=== PATIENT | female | born 1955 | race Two or more races ===

== ENCOUNTER 2017-01-13 11:00 | Inpatient (IN) | payer MEDICARE, OTHER ==
[~2017-01-13] VITALS: Ht 147.3 cm; Wt 73.1 kg
[~2017-01-13 11:00] MED LIST: HYDR-971 PO; INSU100V13 SQ; LISI1TAB7 PO; NAPR550T PO
[2017-01-13 11:49] LABS: BASO % 0 % (0-3); EOS % 1 % (0-3); HEMATOCRIT 46.1 % (36.0-47.0); HEMOGLOBIN 15.5 g/dL (12.0-15.5); LYMPH # 2.3 x10^3/uL (1.0-4.8); LYMPH % 36 % (24-48); MEAN CORPUSCULAR HEMOGLOBIN 30 pg (25-35); MEAN CORPUSCULAR HGB CONC 34 g/dL (31-37); MEAN CORPUSCULAR VOLUME 90 fL (79-100); MONO % 7 % (0-9); NEUT % 55 % (31-73); PLATELET COUNT 246 x10^3/uL (140-400); RED BLOOD COUNT 5.13 x10^6/uL (3.50-5.40); WHITE BLOOD COUNT 6.3 x10^3/uL (4.0-11.0)
[2017-01-13] MEDS ORDERED: ONDANSETRON PF 4 MG/2 ML VIAL. IV ONE (12:00)
[2017-01-13] MEDS ORDERED: IV NORMAL SALINE 1000ML BAG 1,000 ML IV ONE (12:00)
[2017-01-13 12:02] LABS: CALCIUM 9.3 mg/dL (8.5-10.1); CREATININE 0.6 mg/dL (0.6-1.0); GFR 101.3
[2017-01-13 12:08] LABS: ALBUMIN 4.1 g/dL (3.4-5.0); ALBUMIN/GLOBULIN RATIO 1.1 (1.0-1.7); TOTAL BILIRUBIN 0.7 mg/dL (0.2-1.0)
[2017-01-13 12:37] LABS: BILIRUBIN,URINE NEGATIVE (NEG); GLUCOSE,URINE >=1000 mg/dL (NEG); NITRITE,URINE NEGATIVE (NEG); PROTEIN,URINE NEGATIVE (NEG-TRACE); UROBILINOGEN,URINE 0.2 mg/dL (0.2 mg/dL)
[2017-01-13 12:48] LABS: BACTERIA,URINE 0 /HPF (0-FEW); RBC,URINE OCC /HPF (0-2); SQUAMOUS EPITHELIAL CELL,UR FEW /LPF; WBC,URINE OCC /HPF (0-4)
[2017-01-13] MEDS ORDERED: IOHEXOL 300 MG/ML 75 ML VIAL IV ONE (13:00)
[2017-01-13] MEDS ORDERED: CONTRAST GIVEN MC PRN (13:00)
--- NOTE | 2017-01-13 13:03 | EKG ---
[facility] [address] [place] [address] Test Date: 2017-01-13 Test Time: 11:50:03 Pat Name: TRISTON MERCER Department: Room: Gender: F Conference Manager: : [id number] Requested By: PENNY CABRERA Order Number: [id number] Reading MD: Marta Oh Measurements Intervals [place] Rate: 89 P: 0 CA: 152 QRS: -23 QRSD: 68 T: 14 QT: 356 QTc: 440 Interpretive Statements SINUS RHYTHM LEFTWARD AXIS NORMAL ECG RI6.01 Compared to ECG 03/04/2015 14:00:38 No significant changes Electronically Signed On 01-13-2017 21:02:47 CDT by Marta Oh
[2017-01-13 14:00] VITALS: BP 133/85
--- NOTE | 2017-01-13 14:14 | RAD ---
EXAM: Abdomen and pelvis CT with intravenous contrast. HISTORY: Pancreatitis. TECHNIQUE: Computed tomographic images of the abdomen and pelvis were obtained following the administration of 75 cc Omnipaque 300 intravenous contrast. Multiplanar reformatting was performed. COMPARISON: None. FINDINGS: Evaluation of the lower thorax demonstrates posterior dependent atelectasis. There is no infiltrate or effusion. There is mild hepatic steatosis. There is a 5 mm hypodense lesion within the right hepatic lobe, too small to characterize. The gallbladder, pancreas and adrenal glands are unremarkable. There are small splenules adjacent to an otherwise unremarkable spleen. There is a 2.3 cm enhancing lesion within the posterior upper mid zone of the right kidney. There is no obstructive uropathy. The bladder, uterus and ovaries are unremarkable. The appendix is unremarkable. No abnormally thickened or dilated loop of bowel is seen. There is a small fat-containing umbilical hernia. There is no pathologically enlarged lymph node. There is no suspicious osseous lesion. IMPRESSION: 1. No acute abdominal or pelvic finding. 2. 2.3 cm enhancing mass within the right kidney, most likely malignant. 3. Mild hepatic steatosis. 4. 5 mm hypodense lesion within the liver, the attenuation of which favors a cyst or hemangioma. PQRS Compliance Statement: One or more of the following individualized dose reduction techniques were utilized for this examination: 1. Automated exposure control 2. Adjustment of the mA and/or kV according to patient size 3. Use of iterative reconstruction technique
[2017-01-13] MEDS ORDERED: MORPHINE SULFATE 4 MG/ML DISP.SYRIN. IV PRN (14:45)
[2017-01-13] MEDS ORDERED: ONDANSETRON PF 4 MG/2 ML VIAL. IV PRN ×2 (14:45→20:30)
--- NOTE | 2017-01-13 15:48 | PHYS DOC ---
Past Medical History Past Medical History: Diabetes-Type II, High Cholesterol, Hypertension Additional Past Medical Histor: NON-COMPLIANT WITH MEDS. Past Surgical History: No Surgical History Alcohol Use: None Drug Use: None Adult General Chief Complaint Chief Complaint: BLOOD SUGAR PROBLEM HPI HPI Patient is a 61 year old female who presents with vomiting. Patient reports 2 week history of intermittent nausea with vomiting. She states over the past 4 days she has been vomiting numerous times daily, today unable to tolerate oral intake. Reports generalized upper abdominal discomfort without focal pain. Denies fevers/chills, hematemesis, diarrhea, constipation, hematochezia/melena, dysuria/hematuria. She reports history of insulin-dependent diabetes & HTN, denies previous abdominal surgeries. Denies use of alcohol or drugs. Does not have a PCP. Review of Systems Review of Systems Constitutional: Denies fever or chills Eyes: Denies change in visual acuity HENT: Denies nasal congestion or sore throat Respiratory: Denies cough or shortness of breath Cardiovascular: Denies chest pain or edema GI: Reports abdominal pain, nausea, vomiting, denies bloody stools or diarrhea : Denies dysuria or hematuria Musculoskeletal: Denies back pain or joint pain Integument: Denies rash or skin lesions Neurologic: Denies headache, focal weakness or sensory changes Current Medications Current Medications Current Medications Medications (Trade) Dose Ordered Sig/Ko Start Time Stop Time Status Last Admin Dose Admin Info (Do NOT chart on this entry -- for MONITORING) 1 each PRN DAILY PRN 01/13/17 13:00 01/15/17 12:59 Iohexol (Omnipaque 300 Mg/ml) 75 ml 1X ONCE 01/13/17 13:00 01/13/17 13:01 DC 01/13/17 13:00 75 ML Ondansetron HCl (Zofran) 4 mg 1X ONCE 01/13/17 12:00 01/13/17 12:01 DC 01/13/17 12:31 4 MG Sodium Chloride (Iv Sodium Chloride 0.9% 1000ml Bag) 1,000 ml @ 1,000 mls/hr 1X ONCE 01/13/17 12:00 01/13/17 12:59 DC 01/13/17 12:31 1,000 MLS/HR Allergies Allergies Allergies Coded Allergies Type Severity Reaction Last Updated Verified No Known Drug Allergies 03/04/15 No Physical Exam Physical Exam Constitutional: Well developed, well nourished, no acute distress, non-toxic appearance. HENT: Normocephalic, atraumatic, bilateral external ears normal, oropharynx moist, nose normal. Eyes: PERRLA, EOMI, conjunctiva normal, no discharge. Neck: supple, no stridor. Cardiovascular: RRR, no murmurs, no edema. Lungs & Thorax: LCTAB, no wheezing, no respiratory distress. Abdomen: soft, nontender, nondistended. Skin: Warm, dry, no erythema, no rash. Back: No tenderness. Extremities: No tenderness, no edema. Neurologic: Alert and oriented X 3, no focal deficits noted. Psychologic: Affect normal, judgement normal, mood normal. Current Patient Data Vital Signs Vital Signs Date Time Temp Pulse Resp B/P Pulse Ox O2 Delivery O2 Flow Rate FiO2 01/13/17 14:30 90 21 139/75 97 01/13/17 14:00 97.7 Room Air 97.7 Lab Values Laboratory Tests Test 01/13/17 11:15 01/13/17 11:20 01/13/17 12:25 White Blood Count 6.3x10^3/uL (4.0-11.0) Red Blood Count 5.13x10^6/uL (3.50-5.40) Hemoglobin 15.5g/dL (12.0-15.5) Hematocrit 46.1% (36.0-47.0) Mean Corpuscular Volume 90fL (79-100) Mean Corpuscular Hemoglobin 30pg (25-35) Mean Corpuscular Hemoglobin Concent 34g/dL (31-37) Red Cell Distribution Width 13.0% (11.5-14.5) Platelet Count 246x10^3/uL (140-400) Neutrophils (%) (Auto) 55% (31-73) Lymphocytes (%) (Auto) 36% (24-48) Monocytes (%) (Auto) 7% (0-9) Eosinophils (%) (Auto) 1% (0-3) Basophils (%) (Auto) 0% (0-3) Neutrophils # (Auto) 3.5x10^3uL (1.8-7.7) Lymphocytes # (Auto) 2.3x10^3/uL (1.0-4.8) Monocytes # (Auto) 0.4x10^3/uL (0.0-1.1) Eosinophils # (Auto) 0.1x10^3/uL (0.0-0.7) Basophils # (Auto) 0.0x10^3/uL (0.0-0.2) Sodium Level 141mmol/L (136-145) Potassium Level 4.0mmol/L (3.5-5.1) Chloride Level 103mmol/L (98-107) Carbon Dioxide Level 27mmol/L (21-32) Anion Gap 11 (6-14) Blood Urea Nitrogen 14mg/dL (7-20) Creatinine 0.6mg/dL (0.6-1.0) Estimated GFR (Cockcroft-Gault) 101.3 BUN/Creatinine Ratio 23 (6-20) H Glucose Level 239mg/dL (70-99) H Calcium Level 9.3mg/dL (8.5-10.1) Total Bilirubin 0.7mg/dL (0.2-1.0) Aspartate Amino Transferase (AST) 30U/L (15-37) Alanine Aminotransferase (ALT) 56U/L (14-59) Alkaline Phosphatase 143U/L (46-116) H Troponin I Quantitative < 0.017ng/mL (0.000-0.055) Total Protein 8.0g/dL (6.4-8.2) Albumin 4.1g/dL (3.4-5.0) Albumin/Globulin Ratio 1.1 (1.0-1.7) Lipase 650U/L (73-393) H Glucose (Fingerstick) 232mg/dL (70-99) H Urine Collection Type Unknown Urine Color Yellow Urine Clarity Clear Urine pH 6.0 Urine Specific [place] 1.015 Urine Protein Negativemg/dL (NEG-TRACE) Urine Glucose (UA) >=1000mg/dL (NEG) Urine Ketones (Stick) Negativemg/dL (NEG) Urine Blood Negative (NEG) Urine Nitrite Negative (NEG) Urine Bilirubin Negative (NEG) Urine Urobilinogen Dipstick 0.2mg/dL (0.2 mg/dL) Urine Leukocyte Esterase Negative (NEG) Urine RBC Occ/HPF (0-2) Urine WBC Occ/HPF (0-4) Urine Squamous Epithelial Cells Few/LPF Urine Bacteria 0/HPF (0-FEW) Laboratory Tests 01/13/17 11:15 Laboratory Tests 01/13/17 11:15 EKG EKG Interpreted by me: Normal sinus rhythm rate 89, no acute ST or T wave changes, normal intervals, no ectopy [] Radiology/Procedures Radiology/Procedures PROCEDURE: ABD PELV W/ IV CONTRAST ONLY EXAM: Abdomen and pelvis CT with intravenous contrast. HISTORY: Pancreatitis. TECHNIQUE: Computed tomographic images of the abdomen and pelvis were obtained following the administration of 75 cc Omnipaque 300 intravenous contrast. Multiplanar reformatting was performed. COMPARISON: None. FINDINGS: Evaluation of the lower thorax demonstrates posterior dependent atelectasis. There is no infiltrate or effusion. There is mild hepatic steatosis. There is a 5 mm hypodense lesion within the right hepatic lobe, too small to characterize. The gallbladder, pancreas and adrenal glands are unremarkable. There are small splenules adjacent to an otherwise unremarkable spleen. There is a 2.3 cm enhancing lesion within the posterior upper mid zone of the right kidney. There is no obstructive uropathy. The bladder, uterus and ovaries are unremarkable. The appendix is unremarkable. No abnormally thickened or dilated loop of bowel is seen. There is a small fat-containing umbilical hernia. There is no pathologically enlarged lymph node. There is no suspicious osseous lesion. IMPRESSION: 1. No acute abdominal or pelvic finding. 2. 2.3 cm enhancing mass within the right kidney, most likely malignant. 3. Mild hepatic steatosis. 4. 5 mm hypodense lesion within the liver, the attenuation of which favors a cyst or hemangioma. PQRS Compliance Statement: One or more of the following individualized dose reduction techniques were utilized for this examination: 1. Automated exposure control 2. Adjustment of the mA and/or kV according to patient size 3. Use of iterative reconstruction technique DICTATED and SIGNED BY: YVONNE DEAN MD DATE: 01/13/17 6536 [] Course & Med Decision Making Course & Med Decision Making Pertinent Labs and Imaging studies reviewed. (See chart for details) Patient presents with vomiting & abdominal pain. Gave IV fluids, zofran, pain medication. Labs show elevated lipase level. Obtained CT abdomen/pelvis which shows possibly malignant mass in right kidney but no focal finding in the pancreas. Patient has ongoing nausea though not vomiting here. Blood glucose elevated but not DKA. Recommend admission for further evaluation & treatment of various findings from today's visit. She agrees with plan of care, discussed with Dr. Urias who agrees to admit to inpatient status. Will continue IV fluid hydration, keep NPO, manage symptoms, consult Dr. Singh GI. Will also consult Dr. Payan oncology regarding next steps for abnormal kidney finding on imaging. Patient is admitted in stable condition. [] Dragon Disclaimer Dragon Disclaimer This electronic medical record was generated, in whole or in part, using a voice recognition dictation system. Departure Departure Impression: Primary Impression: Pancreatitis Additional Impressions: Nausea & vomiting Renal mass Hyperglycemia Disposition: ADMITTED INPATIENT Admitting Physician: Justo Urias Condition: STABLE Problem Qualifiers PENNY CABRERA MD Jan 13, 2017 15:48
--- NOTE | 2017-01-13 16:15 | PDOC2 ---
GI CONSULT Reason For Consult: Pancreatitis HPI: HPI: 61 y/o female seen in ER prior to admission. Reports 2-3 weeks of feeling ill w/ subjective fever, weakness, headache, sinus congestion, n/v, and diarrhea. Vomiting occurs randomly; she is sometimes able to eat normally. No abd pain, reflux, dysphagia, or bleeding. No NSAIS use. She believes she has lost 50 pounds unintentionally in the past year. No h/o pancreatitis, no previous EGD or colonoscopy, no previous surgeries. Labs significant for Alk Phos [address] A/P showed 2.3cm right kidney lesion (likely malignant), mild hepatic steatosis, and 5mm liver lesion (likely cyst/hemangioma ). PMH: PMH: IDDM, HTN, HLD FH: Family History: Other (nephew had pancreatitis) Social History: Smoke: No ALCOHOL: none Drugs: None ROS: GEN: +fevers HEENT: Denies blurred vision, sore throat CV: Denies chest pain RESP: Denies shortness of air, cough GI: Per HPI : Denies hematuria, dysuria ENDO: +weight loss NEURO: +headache MSK: +weakness SKIN: Denies jaundice, pruritus VItals: Vitals: Vital Signs Date Time Temp Pulse Resp B/P Pulse Ox O2 Delivery O2 Flow Rate FiO2 01/13/17 15:00 86 21 133/77 97 Room Air 01/13/17 11:02 98.2 98.2 Labs: Labs: Laboratory Tests Test 01/13/17 11:15 01/13/17 11:20 01/13/17 12:25 White Blood Count 6.3x10^3/uL (4.0-11.0) Red Blood Count 5.13x10^6/uL (3.50-5.40) Hemoglobin 15.5g/dL (12.0-15.5) Hematocrit 46.1% (36.0-47.0) Mean Corpuscular Volume 90fL (79-100) Mean Corpuscular Hemoglobin 30pg (25-35) Mean Corpuscular Hemoglobin Concent 34g/dL (31-37) Red Cell Distribution Width 13.0% (11.5-14.5) Platelet Count 246x10^3/uL (140-400) Neutrophils (%) (Auto) 55% (31-73) Lymphocytes (%) (Auto) 36% (24-48) Monocytes (%) (Auto) 7% (0-9) Eosinophils (%) (Auto) 1% (0-3) Basophils (%) (Auto) 0% (0-3) Neutrophils # (Auto) 3.5x10^3uL (1.8-7.7) Lymphocytes # (Auto) 2.3x10^3/uL (1.0-4.8) Monocytes # (Auto) 0.4x10^3/uL (0.0-1.1) Eosinophils # (Auto) 0.1x10^3/uL (0.0-0.7) Basophils # (Auto) 0.0x10^3/uL (0.0-0.2) Sodium Level 141mmol/L (136-145) Potassium Level 4.0mmol/L (3.5-5.1) Chloride Level 103mmol/L (98-107) Carbon Dioxide Level 27mmol/L (21-32) Anion Gap 11 (6-14) Blood Urea Nitrogen 14mg/dL (7-20) Creatinine 0.6mg/dL (0.6-1.0) Estimated GFR (Cockcroft-Gault) 101.3 BUN/Creatinine Ratio 23 (6-20) Glucose Level 239mg/dL (70-99) Calcium Level 9.3mg/dL (8.5-10.1) Total Bilirubin 0.7mg/dL (0.2-1.0) Aspartate Amino Transf (AST/SGOT) 30U/L (15-37) Alanine Aminotransferase (ALT/SGPT) 56U/L (14-59) Alkaline Phosphatase 143U/L (46-116) Troponin I Quantitative < 0.017ng/mL (0.000-0.055) Total Protein 8.0g/dL (6.4-8.2) Albumin 4.1g/dL (3.4-5.0) Albumin/Globulin Ratio 1.1 (1.0-1.7) Lipase 650U/L (73-393) Glucose (Fingerstick) 232mg/dL (70-99) Urine Collection Type Unknown Urine Color Yellow Urine Clarity Clear Urine pH 6.0 Urine Specific [place] 1.015 Urine Protein Negativemg/dL (NEG-TRACE) Urine Glucose (UA) >=1000mg/dL (NEG) Urine Ketones (Stick) Negativemg/dL (NEG) Urine Blood Negative (NEG) Urine Nitrite Negative (NEG) Urine Bilirubin Negative (NEG) Urine Urobilinogen Dipstick 0.2mg/dL (0.2 mg/dL) Urine Leukocyte Esterase Negative (NEG) Urine RBC Occ/HPF (0-2) Urine WBC Occ/HPF (0-4) Urine Squamous Epithelial Cells Few/LPF Urine Bacteria 0/HPF (0-FEW) Allergies: Coded Allergies: No Known Drug Allergies (Unverified , 03/04/15) Medications: Current Medications Medications (Trade) Dose Ordered Sig/Ko Route PRN Reason Start Time Stop Time Status Last Admin Dose Admin Sodium Chloride (Iv Sodium Chloride 0.9% 1000ml Bag) 1,000 ml @ 1,000 mls/hr 1X ONCE IV 01/13/17 12:00 01/13/17 12:59 DC 01/13/17 12:31 Ondansetron HCl (Zofran) 4 mg 1X ONCE IV 01/13/17 12:00 01/13/17 12:01 DC 01/13/17 12:31 Iohexol (Omnipaque 300 Mg/ml) 75 ml 1X ONCE IV 01/13/17 13:00 01/13/17 13:01 DC 01/13/17 13:00 Imaging: Imaging: CT A/P w/ IV contrast FINDINGS: Evaluation of the lower thorax demonstrates posterior dependent atelectasis. There is no infiltrate or effusion. There is mild hepatic steatosis. There is a 5 mm hypodense lesion within the right hepatic lobe, too small to characterize. The gallbladder, pancreas and adrenal glands are unremarkable. There are small splenules adjacent to an otherwise unremarkable spleen. There is a 2.3 cm enhancing lesion within the posterior upper mid zone of the right kidney. There is no obstructive uropathy. The bladder, uterus and ovaries are unremarkable. The appendix is unremarkable. No abnormally thickened or dilated loop of bowel is seen. There is a small fat-containing umbilical hernia. There is no pathologically enlarged lymph node. There is no suspicious osseous lesion. IMPRESSION: 1. No acute abdominal or pelvic finding. 2. 2.3 cm enhancing mass within the right kidney, most likely malignant. 3. Mild hepatic steatosis. 4. 5 mm hypodense lesion within the liver, the attenuation of which favors a cyst or hemangioma. PE: GEN: NAD HEENT: Atraumatic, PERRLA LUNGS: CTAB HEART: RRR, no murmurs ABD: NABS, S/ND/NT, no masses EXTREMITY: No edema SKIN: No rashes, no jaundice NEURO/PSYCH: A & O 3 A/P: A/P: Renal mass N/v, diarrhea, weight loss -also w/ fevers, weakness Elevated lipase -unremarkable pancreas on CT CRC screen -no previous colonoscopy -- Medical therapy for elevated lipase/possible pancreatitis. CT concerning for malignancy. Note oncology consult. Will also ask urology to see. ZEYAD PEREZ Jan 13, 2017 16:15
[2017-01-13] MEDS: IV NORMAL SALINE 1000ML BAG 1,000 ML IV SCH (16:45)
[2017-01-13] MEDS ORDERED: LIRA0.6P SQ (16:52)
[2017-01-13 19:40] VITALS: BP 144/86
[2017-01-13] MEDS ORDERED: DEXTROSE 50% 25 GM / 50ML DISP.SYRIN. IV PRN (20:00)
[2017-01-13] MEDS ORDERED: hydrALAZINE 20 MG/ML VIAL. IVP PRN (20:30)
[2017-01-13] MEDS ORDERED: ALBUTEROL SULFATE 2.5 MG/3 ML NEBU. NEB PRN (20:30)
[2017-01-13] MEDS ORDERED: HYDROCODONE/APAP 5/325MG TABLET. PO PRN (20:30)
[2017-01-13] MEDS ORDERED: ACETAMINOPHEN 325 MG TABLET. PO PRN (20:30)
[2017-01-13 23:20] VITALS: BP 100/57
--- NOTE | 2017-01-13 23:24 | HP ---
ADMIT DATE: 01/13/2017 CHIEF COMPLAINT: Abdominal pain, nausea and vomiting. HISTORY OF PRESENT ILLNESS: A 61-year-old female patient with prior history of type 2 diabetes mellitus, insulin-dependent and hypertension, presented to the ER with complaints of weakness, headache, sinus congestion, nausea, vomiting, diarrhea for nearly few weeks, probably 2-3 weeks. The patient has had abdominal pain has been better now and diarrhea, nausea, vomiting also better after she came to the hospital. She denies any worsening of pain with food, denies any alcohol intake or NSAIDs usage. She recently lost some weight since her appetite is good. She has been drinking Dr Pepper and soda. She was diagnosed with right kidney mass around 2.3 cm. The patient has been admitted to the hospital for possible pancreatitis, abdominal pain and ____ mass. PAST MEDICAL HISTORY: Hypertension, hyperlipidemia, type 2 diabetes mellitus. FAMILY HISTORY: One of her family members has pancreatitis. SOCIAL HISTORY: No smoking, no alcohol, no drug abuse. REVIEW OF SYSTEMS: GENERAL: Positive fevers. EYES: No recent vision changes. SKIN: No rash or itching. CARDIOVASCULAR: No chest pain, syncope, palpitations or edema. RESPIRATORY: No shortness of breath, cough. GASTROINTESTINAL: Nausea, vomiting, abdominal pain. NEUROLOGICAL: No headache, paralysis. ENDOCRINOLOGIC: No cold or heat intolerance. GENITOURINARY: No burning with urination, no urgency. MUSCULOSKELETAL: Weakness. LYMPHATICS: No enlarged nodes. PSYCHIATRIC: No anxiety or depression. ALLERGIES: NKDA. PHYSICAL EXAMINATION: GENERAL: No apparent distress. HEENT: Head normocephalic, atraumatic. NECK: Supple. LUNGS: Clear to auscultation. HEART: Regular rate and rhythm; S1, S2 present; pulses intact. ABDOMEN: Soft and positive bowel sounds. EXTREMITIES: No cyanosis or edema. NEUROLOGIC: Normal speech and normal tone; alert and oriented. PSYCHIATRIC: Normal affect, normal mood. SKIN: No ulceration. The exam is essentially normal in range. HOME MEDICATIONS: Reviewed and reconciled. Please see MRAD. IMAGING STUDIES: CT of the abdomen and pelvis showed 2.3 cm enhancing mass in the right kidney and 5 cm hypodense lesions in the liver, suspected cyst or hemangioma. LABORATORY DATA: Chemistry: Sodium 141, potassium 4.0, chloride 103, anion gap is 11, blood sugar 239 and troponin less than ____ lipase is 650. Hematology: WBC is 6.3, hemoglobin is 15.5, MCV is 90, platelet 246. Urine clarity is clear, pH 6.0, protein is negative, ketones negative, bilirubin negative. ASSESSMENT: 1. Acute abdominal pain, questionable pancreatitis. 2. Renal mass 2.3 cm right side, questionable malignancy. 3. Liver mass 5 cm hypodense lesions suspected cyst versus hemangioma. 4. Dehydration. 5. Type 2 diabetes mellitus with hyperglycemia. 6. Hypertension. PLAN: 1. Continue IV hydration at 100 mL per hour and try ice chips. The patient is a symptomatic. I will try clear liquids, but keep in n.p.o. from midnight. The patient would like to try some liquid this morning as her symptom has been resolved at the time of my examination. 2. Pain control with morphine. 3. Gastroenterology, Urology and Oncology has been consulted. 4. RN to verify all medications resume her home medications. 5. Monitor lipase in a.m. 6. Sliding scale insulin. 7. Supportive care. ERIK PAUL MD DR: ESTRADA/dianne JOB#: [id number] / [id number]
[2017-01-14] MEDS: IV NORMAL SALINE 1000ML BAG 1,000 ML IV SCH ×2 (02:45→10:42)
[2017-01-14 03:57] VITALS: BP 92/58
[2017-01-14 04:44] LABS: BASO % 0 % (0-3); EOS % 2 % (0-3); HEMATOCRIT 40.7 % (36.0-47.0); HEMOGLOBIN 13.5 g/dL (12.0-15.5); LYMPH # 2.1 x10^3/uL (1.0-4.8); LYMPH % 38 % (24-48); MEAN CORPUSCULAR HEMOGLOBIN 30 pg (25-35); MEAN CORPUSCULAR HGB CONC 33 g/dL (31-37); MEAN CORPUSCULAR VOLUME 91 fL (79-100); MONO % 8 % (0-9); NEUT % 52 % (31-73); PLATELET COUNT 229 x10^3/uL (140-400); RED BLOOD COUNT 4.47 x10^6/uL (3.50-5.40); RED CELL DISTRIBUTION WIDTH 12.8 % (11.5-14.5); WHITE BLOOD COUNT 5.6 x10^3/uL (4.0-11.0)
[2017-01-14 04:48] LABS: CALCIUM 8.5 mg/dL (8.5-10.1); CREATININE 0.5 mg/dL (0.6-1.0)
[2017-01-14 07:00] VITALS: BP 133/85
--- NOTE | 2017-01-14 08:48 | PDOC ---
Provider Note Provider Note onc consult dictated- [id number]. Right renal mass, probable cancer. CT chest ordered for full staging. If negative, does not need med onc f/u but should proceed with resection w/ urology. JAMMIE JAMES DO Jan 14, 2017 08:48
[2017-01-14] MEDS ORDERED: IOHEXOL 300 MG/ML 75 ML VIAL IV ONE (09:00)
[2017-01-14] MEDS ORDERED: CONTRAST GIVEN MC PRN (09:15)
[2017-01-14] MEDS: INSULIN ASPART 300 UNITS/3 ML INSULN.PEN SQ SCH ×2 (09:19→12:00)
--- NOTE | 2017-01-14 09:47 | PDOC ---
SUBJECTIVE Subjective Pt. admitted with abd pain, N and V Right renal mass found on CT OBJECTIVE Objective Solid right renal mass on CT Vital Signs Vital Signs Date Time Temp Pulse Resp B/P Pulse Ox O2 Delivery O2 Flow Rate FiO2 01/14/17 07:00 98.0 83 16 133/85 97 Room Air 98.0 01/14/17 03:57 98.2 84 16 92/58 94 Room Air 98.2 01/13/17 23:20 98.1 88 16 100/57 95 Room Air 98.1 01/13/17 21:39 99 01/13/17 20:00 Room Air 01/13/17 19:40 97.5 83 16 144/86 97 Room Air 97.5 01/13/17 16:00 Room Air 01/13/17 15:00 86 21 133/77 97 Room Air 01/13/17 14:30 90 21 139/75 97 01/13/17 14:00 84 22 148/80 97 01/13/17 14:00 97.7 87 16 133/85 98 Room Air 97.7 01/13/17 13:00 78 20 114/72 95 01/13/17 12:30 78 22 130/72 93 01/13/17 12:00 90 20 111/65 95 Room Air 01/13/17 11:02 98.2 94 20 144/92 97 Room Air 98.2 I & O Intake and Output 01/14/17 07:00 Intake Total 1164 ml Balance 1164 ml Intake Oral 0 ml IV Total 1164 ml # Voids 4 PHYSICAL EXAM Physical Exam Solid enhancing right renal mass on CT Abd-soft. No right sided flank pain ASSESSMENT/PLAN Assessment/Plan Will refer Pt. to Dr. Rojelio George at Urology-oncology for further evaluation and possible right partial nephrectomy Problems: COMMENT Lab Laboratory Tests Test 01/13/17 11:15 01/13/17 11:20 01/13/17 12:25 01/13/17 17:14 White Blood Count 6.3x10^3/uL (4.0-11.0) Red Blood Count 5.13x10^6/uL (3.50-5.40) Hemoglobin 15.5g/dL (12.0-15.5) Hematocrit 46.1% (36.0-47.0) Mean Corpuscular Volume 90fL (79-100) Mean Corpuscular Hemoglobin 30pg (25-35) Mean Corpuscular Hemoglobin Concent 34g/dL (31-37) Red Cell Distribution Width 13.0% (11.5-14.5) Platelet Count 246x10^3/uL (140-400) Neutrophils (%) (Auto) 55% (31-73) Lymphocytes (%) (Auto) 36% (24-48) Monocytes (%) (Auto) 7% (0-9) Eosinophils (%) (Auto) 1% (0-3) Basophils (%) (Auto) 0% (0-3) Neutrophils # (Auto) 3.5x10^3uL (1.8-7.7) Lymphocytes # (Auto) 2.3x10^3/uL (1.0-4.8) Monocytes # (Auto) 0.4x10^3/uL (0.0-1.1) Eosinophils # (Auto) 0.1x10^3/uL (0.0-0.7) Basophils # (Auto) 0.0x10^3/uL (0.0-0.2) Sodium Level 141mmol/L (136-145) Potassium Level 4.0mmol/L (3.5-5.1) Chloride Level 103mmol/L (98-107) Carbon Dioxide Level 27mmol/L (21-32) Anion Gap 11 (6-14) Blood Urea Nitrogen 14mg/dL (7-20) Creatinine 0.6mg/dL (0.6-1.0) Estimated GFR (Cockcroft-Gault) 101.3 BUN/Creatinine Ratio 23 (6-20) Glucose Level 239mg/dL (70-99) Calcium Level 9.3mg/dL (8.5-10.1) Total Bilirubin 0.7mg/dL (0.2-1.0) Aspartate Amino Transf (AST/SGOT) 30U/L (15-37) Alanine Aminotransferase (ALT/SGPT) 56U/L (14-59) Alkaline Phosphatase 143U/L (46-116) Troponin I Quantitative < 0.017ng/mL (0.000-0.055) Total Protein 8.0g/dL (6.4-8.2) Albumin 4.1g/dL (3.4-5.0) Albumin/Globulin Ratio 1.1 (1.0-1.7) Lipase 650U/L (73-393) Glucose (Fingerstick) 232mg/dL (70-99) 157mg/dL (70-99) Urine Collection Type Unknown Urine Color Yellow Urine Clarity Clear Urine pH 6.0 Urine Specific [place] 1.015 Urine Protein Negativemg/dL (NEG-TRACE) Urine Glucose (UA) >=1000mg/dL (NEG) Urine Ketones (Stick) Negativemg/dL (NEG) Urine Blood Negative (NEG) Urine Nitrite Negative (NEG) Urine Bilirubin Negative (NEG) Urine Urobilinogen Dipstick 0.2mg/dL (0.2 mg/dL) Urine Leukocyte Esterase Negative (NEG) Urine RBC Occ/HPF (0-2) Urine WBC Occ/HPF (0-4) Urine Squamous Epithelial Cells Few/LPF Urine Bacteria 0/HPF (0-FEW) Test 01/13/17 20:34 01/14/17 03:21 01/14/17 07:32 Glucose (Fingerstick) 164mg/dL (70-99) 221mg/dL (70-99) White Blood Count 5.6x10^3/uL (4.0-11.0) Red Blood Count 4.47x10^6/uL (3.50-5.40) Hemoglobin 13.5g/dL (12.0-15.5) Hematocrit 40.7% (36.0-47.0) Mean Corpuscular Volume 91fL (79-100) Mean Corpuscular Hemoglobin 30pg (25-35) Mean Corpuscular Hemoglobin Concent 33g/dL (31-37) Red Cell Distribution Width 12.8% (11.5-14.5) Platelet Count 229x10^3/uL (140-400) Neutrophils (%) (Auto) 52% (31-73) Lymphocytes (%) (Auto) 38% (24-48) Monocytes (%) (Auto) 8% (0-9) Eosinophils (%) (Auto) 2% (0-3) Basophils (%) (Auto) 0% (0-3) Neutrophils # (Auto) 2.9x10^3uL (1.8-7.7) Lymphocytes # (Auto) 2.1x10^3/uL (1.0-4.8) Monocytes # (Auto) 0.4x10^3/uL (0.0-1.1) Eosinophils # (Auto) 0.1x10^3/uL (0.0-0.7) Basophils # (Auto) 0.0x10^3/uL (0.0-0.2) Sodium Level 141mmol/L (136-145) Potassium Level 4.0mmol/L (3.5-5.1) Chloride Level 106mmol/L (98-107) Carbon Dioxide Level 25mmol/L (21-32) Anion Gap 10 (6-14) Blood Urea Nitrogen 11mg/dL (7-20) Creatinine 0.5mg/dL (0.6-1.0) Estimated GFR (Cockcroft-Gault) 125.0 Glucose Level 216mg/dL (70-99) Calcium Level 8.5mg/dL (8.5-10.1) Lipase 295U/L (73-393) CRISTINA TOMAS MD Jan 14, 2017 09:47
--- NOTE | 2017-01-14 10:34 | CONS ---
DATE OF CONSULTATION: 01/14/2017 ONCOLOGY CONSULT NOTE REFERRING PROVIDER: Dr. Maravilla. REASON FOR CONSULTATION: Renal mass. HISTORY OF PRESENT ILLNESS: The patient is a 61-year-old female who sounds like she has previously had rather limited healthcare. She does have diabetes, hypertension, hyperlipidemia and was taking insulin for that prior to admission. She had a 2-week history of weakness, intermittent headaches, nausea, vomiting, diarrhea. For the last few weeks, she has reportedly had 50 pound weight loss over an unclear timeframe as well. She thought this was mostly due to sinus congestion and drainage. CT imaging here was unremarkable with the exception of a 2.3 cm right renal mass and 5 mm liver lesion thought to be consistent with cyst or benign hemangioma. Her CBC and CMP are relatively unremarkable. Lipase is 295, but clinically, we are treating her symptomatically for possible pancreatitis. PAST MEDICAL HISTORY: Diabetes, hypertension, hyperlipidemia. PAST SURGICAL HISTORY: Negative. FAMILY HISTORY: Unknown to the patient with the exception of dad having diabetes. SOCIAL HISTORY: She denies any tobacco, alcohol or drug use. ALLERGIES: No known drug allergies. CURRENT MEDICATIONS: NovoLog, albuterol, Zofran, hydralazine, Lortab, Tylenol, normal saline. REVIEW OF SYSTEMS: Twelve point review of systems completed and unremarkable with the exception of that mentioned in the HPI. PHYSICAL EXAMINATION: VITAL SIGNS: Temperature 98.0, pulse 83, respiratory rate 16, blood pressure 133/85, 97% O2 on room air. GENERAL: She is alert and oriented and in no distress at this time. HEENT: Extraocular muscles are intact. Mucous membranes are moist. CARDIOVASCULAR: Heart is regular in rhythm and rate. LUNGS: Clear to auscultation bilaterally. ABDOMEN: Obese, soft and nontender with no obvious masses. EXTREMITIES: No edema. NEUROLOGIC: No focal deficits. IMAGING AND LABORATORY DATA: CT abdomen/pelvis CBC, CMP and GI/hospitalist notes reviewed as above. ASSESSMENT AND PLAN: The patient is a 61-year-old female with the following medical problems: 1. A 2.3 cm right renal mass consistent with probable early kidney cancer. I am going to order a CT chest for full staging but presume it will be negative. As long as she does not have metastatic disease, she does not have to follow with a medical oncologist and simply needs to have her surgery in the future once over these acute events. Dr. Tolliver has been consulted. Thank you for allowing me to participate in her care. JAMMIE JAMES DO DR: VIDA/dianne JOB#: [id number] / [id number] RACHEL
[2017-01-14 11:00] VITALS: BP 117/76
--- NOTE | 2017-01-14 11:28 | CONS ---
DATE OF CONSULTATION: 01/14/2017 The patient is in room 664. HISTORY OF PRESENT ILLNESS: The patient is a very pleasant 61-year-old female, who was admitted with abdominal pain, nausea and vomiting. The patient has history of, insulin-dependent diabetes, hypertension. She came in with weakness, headache, sinus congestion. She had been admitted with nausea and vomiting and diarrhea for the last several weeks. The patient has no known drug allergies. No prior abdominal operations. Her lipase is 650, white count 6.3, platelets 246,000, creatinine 0.5. Urine showed an occasional red cell, occasional white cell and no bacteria. The patient's abdomen and pelvis CT showed a 2.3 cm enhancing mass within the right kidney posteriorly, in the mid kidney, possibly consistent with renal cell carcinoma. PHYSICAL EXAMINATION: ABDOMEN: Obese, soft, really nontender right now, no CVA tenderness. PLAN: I talked with the patient concerning her right renal mass and we will refer her to ____ at , Urology and Oncology for further evaluation and possible partial nephrectomy to treat the solid enhancing right renal mass. I certainly appreciate being allowed to participate in this patient's care. CRISTINA TOMAS MD DR: JL/dianne JOB#: [id number] / [id number]
--- NOTE | 2017-01-14 11:44 | PDOC ---
PROGRESS NOTES Chief Complaint Chief Complaint Renal mass Pancreatitis ASSESSMENT AND PLAN: 1. R renal mass: most likely malignant. appreciate Urology and oncology input. staging CT chest ordered. refer pt to Dr. Rojelio George at urology 2. pancreatitis: incidental, mild. resolved by labs 3. DM2: fair control currently with ISS, NPO. advance diet. has liraglutide on O/P basis, not available here 4. Dispo: home with F/U: Dr George at urology Vitals Vitals Vital Signs Date Time Temp Pulse Resp B/P Pulse Ox O2 Delivery O2 Flow Rate FiO2 01/14/17 11:00 97.8 77 16 117/76 96 Room Air 97.8 Physical Exam General: Alert, Oriented X3, Cooperative Heart: Regular rate Lungs: Clear Abdomen: Normal bowel sounds, Other (minimal gen TTP) Extremities: No clubbing, No edema Skin: No rashes Labs LABS Laboratory Tests Test 01/13/17 12:25 01/13/17 17:14 01/13/17 20:34 01/14/17 03:21 Urine Collection Type Unknown Urine Color Yellow Urine Clarity Clear Urine pH 6.0 Urine Specific [place] 1.015 Urine Protein Negativemg/dL (NEG-TRACE) Urine Glucose (UA) >=1000mg/dL (NEG) Urine Ketones (Stick) Negativemg/dL (NEG) Urine Blood Negative (NEG) Urine Nitrite Negative (NEG) Urine Bilirubin Negative (NEG) Urine Urobilinogen Dipstick 0.2mg/dL (0.2 mg/dL) Urine Leukocyte Esterase Negative (NEG) Urine RBC Occ/HPF (0-2) Urine WBC Occ/HPF (0-4) Urine Squamous Epithelial Cells Few/LPF Urine Bacteria 0/HPF (0-FEW) Glucose (Fingerstick) 157mg/dL (70-99) 164mg/dL (70-99) White Blood Count 5.6x10^3/uL (4.0-11.0) Red Blood Count 4.47x10^6/uL (3.50-5.40) Hemoglobin 13.5g/dL (12.0-15.5) Hematocrit 40.7% (36.0-47.0) Mean Corpuscular Volume 91fL (79-100) Mean Corpuscular Hemoglobin 30pg (25-35) Mean Corpuscular Hemoglobin Concent 33g/dL (31-37) Red Cell Distribution Width 12.8% (11.5-14.5) Platelet Count 229x10^3/uL (140-400) Neutrophils (%) (Auto) 52% (31-73) Lymphocytes (%) (Auto) 38% (24-48) Monocytes (%) (Auto) 8% (0-9) Eosinophils (%) (Auto) 2% (0-3) Basophils (%) (Auto) 0% (0-3) Neutrophils # (Auto) 2.9x10^3uL (1.8-7.7) Lymphocytes # (Auto) 2.1x10^3/uL (1.0-4.8) Monocytes # (Auto) 0.4x10^3/uL (0.0-1.1) Eosinophils # (Auto) 0.1x10^3/uL (0.0-0.7) Basophils # (Auto) 0.0x10^3/uL (0.0-0.2) Sodium Level 141mmol/L (136-145) Potassium Level 4.0mmol/L (3.5-5.1) Chloride Level 106mmol/L (98-107) Carbon Dioxide Level 25mmol/L (21-32) Anion Gap 10 (6-14) Blood Urea Nitrogen 11mg/dL (7-20) Creatinine 0.5mg/dL (0.6-1.0) Estimated GFR (Cockcroft-Gault) 125.0 Glucose Level 216mg/dL (70-99) Calcium Level 8.5mg/dL (8.5-10.1) Lipase 295U/L (73-393) Test 01/14/17 07:32 Glucose (Fingerstick) 221mg/dL (70-99) Review of Systems Review of Systems abd pain almost resolved. no N/V, hungry. tolerating clear liquids CHRISTOS BAR MD Jan 14, 2017 11:44
--- NOTE | 2017-01-14 12:09 | PDOC ---
Subjective: Subjective: Feeling better. No n/v today. Normal BM last night. Had a random twinge of abd pain that quickly resolved. Wants to eat; particularly wants a soda now. Objective: Objective: Reviewed onc and urology notes. Per RN - significant nausea w/ ice chips last night, better today, asking to eat. Vital Signs: Vital Signs Date Time Temp Pulse Resp B/P Pulse Ox O2 Delivery O2 Flow Rate FiO2 01/14/17 11:00 97.8 77 16 117/76 96 Room Air 97.8 Labs: Laboratory Tests Test 01/13/17 12:25 01/13/17 17:14 01/13/17 20:34 01/14/17 03:21 Urine Collection Type Unknown Urine Color Yellow Urine Clarity Clear Urine pH 6.0 Urine Specific [place] 1.015 Urine Protein Negativemg/dL Urine Glucose (UA) >=1000mg/dL Urine Ketones (Stick) Negativemg/dL Urine Blood Negative Urine Nitrite Negative Urine Bilirubin Negative Urine Urobilinogen Dipstick 0.2mg/dL Urine Leukocyte Esterase Negative Urine RBC Occ/HPF Urine WBC Occ/HPF Urine Squamous Epithelial Cells Few/LPF Urine Bacteria 0/HPF Glucose (Fingerstick) 157mg/dL 164mg/dL White Blood Count 5.6x10^3/uL Red Blood Count 4.47x10^6/uL Hemoglobin 13.5g/dL Hematocrit 40.7% Mean Corpuscular Volume 91fL Mean Corpuscular Hemoglobin 30pg Mean Corpuscular Hemoglobin Concent 33g/dL Red Cell Distribution Width 12.8% Platelet Count 229x10^3/uL Neutrophils (%) (Auto) 52% Lymphocytes (%) (Auto) 38% Monocytes (%) (Auto) 8% Eosinophils (%) (Auto) 2% Basophils (%) (Auto) 0% Neutrophils # (Auto) 2.9x10^3uL Lymphocytes # (Auto) 2.1x10^3/uL Monocytes # (Auto) 0.4x10^3/uL Eosinophils # (Auto) 0.1x10^3/uL Basophils # (Auto) 0.0x10^3/uL Sodium Level 141mmol/L Potassium Level 4.0mmol/L Chloride Level 106mmol/L Carbon Dioxide Level 25mmol/L Anion Gap 10 Blood Urea Nitrogen 11mg/dL Creatinine 0.5mg/dL Estimated GFR (Cockcroft-Gault) 125.0 Glucose Level 216mg/dL Calcium Level 8.5mg/dL Lipase 295U/L Test 01/14/17 07:32 Glucose (Fingerstick) 221mg/dL Imaging: Chest CT PENDING PE: GEN: NAD LUNGS: CTAB HEART: RRR ABD: NABS, S/ND/NT NEURO/PSYCH: A & O 3 A/P: Renal mass N/v, weight loss -has appetite today Elevated lipase - resolved -unremarkable pancreas on CT -- Try clears now, advance as tolerated. Await CT chest, note plans for follow-up w/ urology/onc at re: right renal mass. Outpt screening colonoscopy recommended eventually. ZEYAD PEREZ Jan 14, 2017 12:09
--- NOTE | 2017-01-14 12:15 | ACF ---
Admission Forms Criteria PANCREATITIS Clinical Indications for Admission to Inpatient Care (Place 'X' for any and all applicable criteria): Admission is indicated for ANY ONE of the following (1)(2)(3)(4): [ ]I. Acute pancreatitis[A] as indicated by 2 or more of the following: [ ]a) Abdominal pain (eg, epigastric, left upper quadrant) [ ]b) Serum amylase or serum lipase greater than 3 times the upper limit of normal [ ]c) Characteristic findings from abdominal imaging (eg, pancreatic inflammation, pancreatic necrosis, peripancreatic fluid collection)[B] [X]II. Pancreatitis (acute or chronic ) requiring inpatient care as indicated by 1 or more of the following : [ ]a) Inability to maintain oral hydration Hypoxemia [ ]b) Evidence of infection (eg, fever, peripancreatic abscess) [X]c) Severe pain requiring acute inpatient management [ ]d) Hemodynamic instability [ ]e) Hypoxemia [ ]f) Acute renal failure [ ]g) Severe electrolyte abnormalities Extended stay beyond goal length of stay may be needed for (1)(11) [ ]a) Severe acute pancreatitis (10)(19) [ ]b) Persistent symptoms, ascites, or pleural effusion [ ]c) Abdominal compartment syndrome (10) [ ]d) Late complications [ ]e) Acute renal failure (27) [ ]f) Gallstones in gallbladder The original [employer] content created by [employer] has been revised. The portions of the content which have been revised are identified through the use of italic text or in bold,and [facility] has neither reviewed nor approved the modified material.All other unmodified content is copyright [employer]. Please see references footnoted in the original [employer] edition 2016 Admission Criteria Met?: Yes ROGELIO ARELLANO Jan 14, 2017 12:15
--- NOTE | 2017-01-14 12:32 | RAD ---
Indication staging presumed primary renal cell carcinoma. Axial images through the chest were obtained. 75 cc of Omnipaque 300 was administered intravenously. Note is made of the CT examination of the abdomen and pelvis yesterday. The upper abdomen is unchanged relative to the examination yesterday. The thoracic aorta is unremarkable. There is no significant hilar or mediastinal adenopathy. There is no dominant soft tissue mass. An acute finding in the chest is not seen. There is no evidence of metastatic disease. IMPRESSION: No acute or significant finding in the chest. No evidence of metastatic disease PQRS Compliance Statement: One or more of the following individualized dose reduction techniques were utilized for this examination: 1. Automated exposure control 2. Adjustment of the mA and/or kV according to patient size 3. Use of iterative reconstruction technique
[2017-01-14 15:00] VITALS: BP 149/92
--- NOTE | 2017-01-15 03:53 | DS ---
DATE OF DISCHARGE: 01/14/2017 CHIEF COMPLAINT: Abdominal pain. HOSPITAL COURSE: The patient is a 61-year-old woman who presented with abdominal pain to the Emergency Room. In her lab work, a mild elevation of her lipase was noted. She was therefore admitted for presumed pancreatitis. A CT obtained in the Emergency Room; however, also showed a mass in the right kidney which appeared to be malignant. Urology as well as Oncology were consulted and a referral to Urology was suggested. A CT of the chest for complete staging was undertaken and was negative. An appointment with Dr. Donnelly at was made and given to the patient. Pancreatitis symptoms completely resolved and lipase normalized. The patient was therefore discharged on the with followup at . PHYSICAL EXAMINATION: Please refer to note from same day; discharge date is 01/14/2017. DISCHARGE DIAGNOSES: Pancreatitis, renal mass. DISCHARGE DISPOSITION: To home. DISCHARGE CONDITION: Improved. DISCHARGE MEDICATIONS: Please refer to MAR. DISCHARGE INSTRUCTIONS: The patient will follow up with Dr. Donnelly at Urology as arranged. She will see her PCP in 1 week. CHRISTOS BAR MD DR: IRINA/nts JOB#: [id number] / [id number] RACHEL
== END 2017-01-14 16:00 | disposition home or self-care (01) | DRG 440 ==
LOC: ER 11:00 → 6 SOUTH 14:32
PROVIDERS: ADMIT Internal Medicine; ATTEND Internal Medicine
DX: K85.90 Acute pancreatitis without necrosis or infection, unspecified (principal); D18.03 Hemangioma of intra-abdominal structures; E11.65 Type 2 diabetes mellitus with hyperglycemia; E78.00 Pure hypercholesterolemia, unspecified; E78.5 Hyperlipidemia, unspecified; E86.0 Dehydration; I10 Essential (primary) hypertension; N28.89 Other specified disorders of kidney and ureter; K76.0 Fatty (change of) liver, not elsewhere classified; K76.89 Other specified diseases of liver; Z79.4 Long term (current) use of insulin; Z83.3 Family history of diabetes mellitus; Z91.14 Patient's other noncompliance with medication regimen
CPT/HCPCS: 36415; 71260; 74177; 80048; 80053; 81001; 82947; 83690; 84484; 85027; 93005; 94640; 96361; 96374; J1815; J2405; J7030; Q9967; 99285-25

== ENCOUNTER 2017-08-28 16:17 | Emergency (ER) | payer OTHER ==
[~2017-08-28] VITALS: Ht 147.3 cm; Wt 72.6 kg
[~2017-08-28 16:17] MED LIST changes: +LIRA0.6P SQ; +NAPR-682 PO; -NAPR550T PO
[2017-08-28 16:31] VITALS: BP 174/82
[2017-08-28] MEDS ORDERED: HYDROmorphone 2 MG/ML VIAL IV ONE (16:45)
[2017-08-28] MEDS ORDERED: ONDANSETRON ODT 4 MG TAB.RAPDIS. PO ONE (16:45)
[2017-08-28] MEDS ORDERED: TRAM-48 PO (16:46)
--- NOTE | 2017-08-28 16:49 | PHYS DOC ---
Past Medical History Past Medical History: Arthritis, Cancer, Diabetes-Type II, High Cholesterol, Hypertension, Other Additional Past Medical Histor: NON-COMPLIANT WITH MEDS,SINUS PROBLEMS,KIDNEY CA Past Surgical History: Other Additional Past Surgical Histo: TUMOR REMOVED FROM RIGHT KIDNEY Alcohol Use: None Drug Use: None Adult General Chief Complaint Chief Complaint: GROIN PAIN HPI HPI Patient is a 62 year old female who presents here today complaining of left groin pain that occurred after trying to lift up an air conditioner approximately 11 AM. Patient without any other symptomatology. He fevers shakes chills nausea vomiting diarrhea dysuria frequency urgency or hematuria. Patient has any change in her bowel or bladder habits. Patient's history for hypertension diabetes and to her right kidney that has been removed. Patient has any liver or lung problems. Patient has no known drug allergies and is not allergic to any medications. Review of systems: Constitutional: Denies fever or chills Eyes: Denies change in visual acuity, redness, or eye pain All other systems were reviewed and found to be within normal limits, except as documented in this note. Physical exam: Constitutional: Well developed, well nourished, no acute distress, non-toxic appearance. HENT: Normocephalic, atraumatic, bilateral external ears normal, Eyes: EOMI, conjunctiva normal, no discharge. Neck: Normal range of motion, no tenderness, supple, no stridor. Cardiovascular:Heart rate regular rhythm Lungs & Thorax: Bilateral breath sounds clear to auscultation Abdomen: Bowel sounds normal, soft, no tenderness, no masses, no pulsatile masses. Skin: Warm, dry, no erythema, no rash. Back: No tenderness, no CVA tenderness. Extremities: No tenderness, no cyanosis, no clubbing, ROM intact, no edema. Neurologic: Alert and oriented X 3, normal motor function, normal sensory function, no focal deficits noted. Psychologic: Affect normal, judgement normal, mood normal. Patient's ER physical exam is significant for tenderness to palpation to her left groin. He has no hernia defect. There is no bruit and thrill. No evidence of pseudoaneurysm. No hernia defect. Patient's and bleeding the ED with discomfort. Assessment and plan this is a 62-year-old female who presents here today secondary to mechanical strain of her left groin. Patient has been given additional Dilaudid and Zofran and will be sent home with prescription for Ultram. Patient reports that she has taken a leave and a muscle relaxant home without any relief in her discomfort. Patient's clinically hemodynamically stable for discharged home at this time. There is no further indication for inpatient or ER evaluation at this time. Current Medications Current Medications Current Medications Medications (Trade) Dose Ordered Sig/Ko Start Time Stop Time Status Last Admin Dose Admin Hydromorphone HCl (Dilaudid) 1 mg 1X ONCE 08/28/17 16:45 08/28/17 16:46 Ondansetron HCl (Zofran Odt) 4 mg 1X ONCE 08/28/17 16:45 08/28/17 16:46 Allergies Allergies Allergies Coded Allergies Type Severity Reaction Last Updated Verified No Known Drug Allergies 03/04/15 No Current Patient Data Vital Signs Vital Signs Date Time Temp Pulse Resp B/P (MAP) Pulse Ox O2 Delivery O2 Flow Rate FiO2 08/28/17 16:31 96.9 83 18 174/82 (112) 94 Room Air 96.9 EKG EKG [] Radiology/Procedures Radiology/Procedures [] Course & Med Decision Making Course & Med Decision Making Pertinent Labs and Imaging studies reviewed. (See chart for details) [] Dragon Disclaimer Dragon Disclaimer This electronic medical record was generated, in whole or in part, using a voice recognition dictation system. Departure Departure Impression: Primary Impression: Groin strain Disposition: 01 HOME, SELF-CARE Condition: IMPROVED Referrals: KEVIN FARR MD (PCP) Patient Instructions: Groin Strain Scripts Tramadol Hcl (ULTRAM) 50 Mg Tablet 1 TAB PO Q6HRS, #14 TAB Prov: SHARYN EDOUARD MD 08/28/17 SHARYN EDOUARD MD Aug 28, 2017 16:49
[2017-08-28] MEDS ORDERED: HYDROmorphone 2 MG/ML VIAL IM ONE (17:00)
== END 2017-08-28 17:25 | disposition home or self-care (01) ==
LOC: ER 16:17
DX: S39.011A Strain of muscle, fascia and tendon of abdomen, initial encounter (principal); M19.90 Unspecified osteoarthritis, unspecified site; E11.9 Type 2 diabetes mellitus without complications; E78.00 Pure hypercholesterolemia, unspecified; I10 Essential (primary) hypertension; X58.XXXA Exposure to other specified factors, initial encounter; Y93.89 Activity, other specified; Y92.89 Other specified places as the place of occurrence of the external cause; Y99.8 Other external cause status
CPT/HCPCS: 96372; 99283; J1170; Q0162

== ENCOUNTER 2017-11-11 14:07 | Emergency (ER) | payer OTHER | END 2017-11-11 16:54 | disposition home or self-care (01) | LOC: ER 14:07 | DX: G51.0 Bell's palsy (principal); S90.31XA Contusion of right foot, initial encounter; E78.00 Pure hypercholesterolemia, unspecified; E11.9 Type 2 diabetes mellitus without complications; I10 Essential (primary) hypertension; X58.XXXA Exposure to other specified factors, initial encounter; Y93.89 Activity, other specified; Y99.8 Other external cause status; Y92.89 Other specified places as the place of occurrence of the external cause | CPT/HCPCS: 70450; 70486; 73630; 99284-25 ==

== ENCOUNTER 2018-02-19 13:50 | Emergency (ER) | payer OTHER ==
[2018-02-19] MEDS: IOHEXOL 300 MG/ML 100ML VIAL. IV (14:15)
[2018-02-19 14:18] LABS: ADD MAN DIFF? NO
[2018-02-19 14:19] LABS: BASO % 0 % (0-3); EOS # 0.1 x10^3/uL (0.0-0.7); EOS % 1 % (0-3); HEMATOCRIT 40.1 % (36.0-47.0); HEMOGLOBIN 14.2 g/dL (12.0-15.5); LYMPH # 2.3 x10^3/uL (1.0-4.8); LYMPH % 38 % (24-48); MEAN CORPUSCULAR HEMOGLOBIN 32 pg (25-35); MEAN CORPUSCULAR HGB CONC 35 g/dL (31-37); MEAN CORPUSCULAR VOLUME 89 fL (79-100); MONO # 0.4 x10^3/uL (0.0-1.1); MONO % 6 % (0-9); NEUT # 3.3 x10^3uL (1.8-7.7); NEUT % 55 % (31-73); PLATELET COUNT 269 x10^3/uL (140-400); RED CELL DISTRIBUTION WIDTH 14.2 % (11.5-14.5); WHITE BLOOD COUNT 6.1 x10^3/uL (4.0-11.0)
[2018-02-19] MEDS: MORPHINE SULFATE 4 MG/ML DISP.SYRIN. IV (14:28)
[2018-02-19] MEDS: ONDANSETRON PF 4 MG/2 ML VIAL. IV (14:28)
[2018-02-19] MEDS ORDERED: CONTRAST GIVEN MC (14:30)
[2018-02-19 14:33] LABS: BILIRUBIN,URINE NEGATIVE (NEG); CLARITY,URINE CLEAR; COLOR,URINE YELLOW; GLUCOSE,URINE 500 mg/dL (NEG); NITRITE,URINE NEGATIVE (NEG); PH,URINE 6.5; PROTEIN,URINE NEGATIVE (NEG-TRACE); UROBILINOGEN,URINE 0.2 mg/dL (0.2 mg/dL)
[2018-02-19 14:37] LABS: ANION GAP 11 (6-14); BLOOD UREA NITROGEN 12 mg/dL (7-20); BUN/CREATININE RATIO 20 (6-20); CALCIUM 8.7 mg/dL (8.5-10.1); CARBON DIOXIDE 26 mmol/L (21-32); CHLORIDE 101 mmol/L (98-107); CREATININE 0.6 mg/dL (0.6-1.0); GLUCOSE 208 mg/dL (70-99); POTASSIUM 4.1 mmol/L (3.5-5.1); SODIUM 138 mmol/L (136-145)
[2018-02-19 14:43] LABS: ALBUMIN 3.8 g/dL (3.4-5.0); ALBUMIN/GLOBULIN RATIO 1.1 (1.0-1.7); ALK PHOS 119 U/L (46-116); ALT (SGPT) 51 U/L (14-59); AST (SGOT) 25 U/L (15-37); LIPASE 255 U/L (73-393); TOTAL BILIRUBIN 0.8 mg/dL (0.2-1.0); TOTAL PROTEIN 7.2 g/dL (6.4-8.2)
[2018-02-19 14:44] LABS: BACTERIA,URINE 0 /HPF (0-FEW); RBC,URINE 0 /HPF (0-2); SQUAMOUS EPITHELIAL CELL,UR MOD /LPF; WBC,URINE OCC /HPF (0-4)
[2018-02-19 14:50] LABS: TROPONINI < 0.017 ng/mL (0.000-0.055)
== END 2018-02-19 17:10 | disposition home or self-care (01) ==
LOC: ER 13:50
DX: R11.2 Nausea with vomiting, unspecified (principal); R10.84 Generalized abdominal pain; M19.90 Unspecified osteoarthritis, unspecified site; E11.9 Type 2 diabetes mellitus without complications; E78.00 Pure hypercholesterolemia, unspecified; I10 Essential (primary) hypertension; Z91.14 Patient's other noncompliance with medication regimen
CPT/HCPCS: 36415; 71045; 74177; 80053; 81001; 83690; 84484; 85025; 93005; 96374; 96375; 99285-25; J2270; J2405; Q9967

== ENCOUNTER → 2018-04-20 | Outpatient (CLI) | payer OTHER | END | disposition home or self-care (01) | LOC: CT 08:58 | DX: J01.00 Acute maxillary sinusitis, unspecified (principal); I10 Essential (primary) hypertension; E11.9 Type 2 diabetes mellitus without complications; E78.5 Hyperlipidemia, unspecified; E78.00 Pure hypercholesterolemia, unspecified; Z79.4 Long term (current) use of insulin | CPT/HCPCS: 70486 ==

== ENCOUNTER 2018-10-24 17:06 | Emergency (ER) | payer OTHER ==
[~2018-10-24] VITALS: Ht 147.3 cm; Wt 81.6 kg
[~2018-10-24 17:06] MED LIST changes: +HYDR-3164 PO; -HYDR-971 PO; +ONDA4TAB10 SL; +PRED-220 PO; +TRAM-48 PO
[2018-10-24 17:25] VITALS: BP 185/80
--- NOTE | 2018-10-24 17:30 | PHYS DOC ---
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 Patient states symptoms seem to be worse when the vents are open and AC or heat is blowing dust, she states she has noted dust in her house as swell but when she tries to weight the dust off she states itching. She states she believes it is dust mites or head lice because she has itching in her head that has been going on for the same amount of time. She states she' s been trying [id number] remedies with no relief, she is in the ED with a small bottle with what she is calling dust mites. Review of Systems Review of Systems Constitutional: Denies fever or chills [] Musculoskeletal: Denies back pain or joint pain [] Integument: Reports itching Neurologic: Denies headache, focal weakness or sensory changes [] All other systems were reviewed and found to be within normal limits, except as documented in this note. Allergies Allergies Allergies Coded Allergies Type Severity Reaction Last Updated Verified No Known Drug Allergies 03/04/15 No Physical Exam Physical Exam Constitutional: Well developed, well nourished, no acute distress, non-toxic appearance. [] Skin: Warm, dry, trace amount of erythematous macular rash to bilateral lower extremities Back: No tenderness, no CVA tenderness. [] Extremities: No tenderness, no cyanosis, no clubbing, ROM intact, no edema. [] Neurologic: Alert and oriented X 3, normal motor function, normal sensory function, no focal deficits noted. [] Psychologic: Affect normal, judgement normal, mood normal. [] Current Patient Data Vital Signs Vital Signs Date Time Temp Pulse Resp B/P (MAP) Pulse Ox O2 Delivery O2 Flow Rate FiO2 10/24/18 17:25 98.1 90 18 185/80 (115) 96 Room Air 98.1 EKG EKG [] Radiology/Procedures Radiology/Procedures [] Course & Med Decision Making Course & Med Decision Making Pertinent Labs and Imaging studies reviewed. (See chart for details) This is a 63-year-old female patient presented to the ED today complaining of itching from head to toe that has been going on since spring. Patient believes it's dust mite or head lice. I talked to patient at length. I requested her to consult an air duct cleaning company to clean her air ducts/ vents. I also requested she considers fumigating her house. I also requested she get the highest somebody to clean her entire house all she herself cleans the house including her own laundry. I also requested she follows up with her PCP next week. Patient was discharged with Atarax, permethrin, and triamcinolone cream. Staff Physician Addendum: I was working in the ER during the course of this patient's visit. I was available for consultation as needed, but I was not directly involved in the care of this patient. Dragon Disclaimer Dragon Disclaimer This electronic medical record was generated, in whole or in part, using a voice recognition dictation system. Departure Departure Impression: Primary Impression: Itching Disposition: HOME, SELF-CARE Condition: STABLE Referrals: JERILYN CARDENAS APRN (PCP) Follow-up with your primary care doctor in the next 1-2 weeks Patient Instructions: Itching-Brief Additional Instructions: You were evaluated in the emergency room for itching. We highly recommend you consider hiring somebody to clean your air ducts. If you look on line you will find air duct cleaning companies. Also consider hiring somebody to fumigating your house. Also consider hiring someone to clean the entire house or you can do it yourself. Clean all your laundry too. Follow-up with your own doctor in the course of next week. Scripts Triamcinolone Acetonide (TRIAMCINOLONE ACETONIDE 0.1% OINT) 15 Gm Oint...g. 1 JOSE TP BID for WOUND CARE, #1 TUBE Prov: SIMRAN REYNOSO APRN 10/24/18 Hydroxyzine Hcl (HYDROXYZINE HCL) 25 Mg Tablet 1 TAB PO TID, #90 TAB 0 Refills Prov: MUTUNGASIMRAN ECONOMIST RESEARCH ASSISTANT 10/24/18 Permethrin (PERMETHRIN) 60 Gm Cream..g. 1 JOSE TP ONCE, #60 GM 1 Refill Apply today and repeat in 1 week Prov: SIMRAN REYNOSO APRN 10/24/18 SIMRAN REYNOSO APRN Oct 24, 2018 17:30 YARITZA ALCOCER MD Oct 25, 2018 06:47
[2018-10-24] MEDS ORDERED: PERM60CR12 TP (17:35)
[2018-10-24] MEDS ORDERED: TRIA15OI TP (17:35)
[2018-10-24] MEDS ORDERED: HYDR25TA PO (17:35)
[2018-10-24] MEDS ORDERED: ATOR10TA PO (17:53)
[2018-10-24] MEDS ORDERED: LIRA0.6P2 SQ (17:53)
[2018-10-24] MEDS ORDERED: MELO7.5T5 PO (17:53)
[2018-10-24] MEDS ORDERED: INSU100I30 SQ (17:53)
[2018-10-24] MEDS ORDERED: MONT10TA9 PO (17:53)
== END 2018-10-24 18:05 | disposition home or self-care (01) ==
LOC: ER 17:06
DX: L29.9 Pruritus, unspecified (principal); E11.9 Type 2 diabetes mellitus without complications; E78.00 Pure hypercholesterolemia, unspecified; I10 Essential (primary) hypertension
CPT/HCPCS: 99283

== ENCOUNTER 2019-03-11 16:08 | Emergency (ER) | payer OTHER ==
[~2019-03-11] VITALS: Ht 147.3 cm; Wt 81.6 kg
[~2019-03-11 16:08] MED LIST changes: +ATOR10TA PO; +HYDR25TA PO; +INSU100I30 SQ; +LIRA0.6P2 SQ; +MELO7.5T5 PO; +MONT10TA9 PO; +PERM60CR12 TP; +TRIA15OI TP
[2019-03-11 17:12] VITALS: BP 119/69
--- NOTE | 2019-03-11 18:49 | PHYS DOC ---
Past Medical History Past Medical History: Diabetes-Type II, High Cholesterol, Hypertension Additional Past Medical Histor: NON-COMPLIANT WITH MEDS,SINUS PROBLEMS,KIDNEY CA Past Surgical History: Other Additional Past Surgical Histo: tumor on kidney Alcohol Use: None Drug Use: None Adult General Chief Complaint Chief Complaint: ANKLE PROBLEM [facility] HPI Patient is a 63 year old F who presents with R ankle pain. She twisted her ankle and sort of fell over in the bedroom. She slipped on water. She did not get any other injuries. She did not hit her head or lose consciousness. She denies neck pain or chest pain or sob or abd pain or hip or pelvis pain. She says the pain is in her ankle on the [lateral] side. Review of Systems Review of Systems Constitutional: Denies fever or chills Eyes: Denies change in visual acuity, redness, or eye pain HENT: Denies nasal congestion or sore throat Respiratory: Denies cough or shortness of breath Cardiovascular: No additional information not addressed in HPI GI: Denies abdominal pain, nausea, vomiting, bloody stools or diarrhea : Denies dysuria or hematuria Musculoskeletal: Denies back pain or joint pain Integument: Denies rash or skin lesions Neurologic: Denies headache, focal weakness or sensory changes Endocrine: Denies polyuria or polydipsia All other systems were reviewed and found to be within normal limits, except as documented in this note. Allergies Allergies Allergies Coded Allergies Type Severity Reaction Last Updated Verified No Known Drug Allergies 03/04/15 No Physical Exam Physical Exam Constitutional: Well developed, well nourished, no acute distress, non-toxic appearance. HENT: Normocephalic, atraumatic, bilateral external ears normal, oropharynx moist, no oral exudates, nose normal. Eyes: PERRLA, EOMI, conjunctiva normal, no discharge. Neck: Normal range of motion, no tenderness, supple, no stridor. Cardiovascular:Heart rate regular rhythm, no murmur Lungs & Thorax: Bilateral breath sounds clear to auscultation Abdomen: Bowel sounds normal, soft, no tenderness, no masses, no pulsatile masses. Skin: Warm, dry, no erythema, no rash. Back: No tenderness, no CVA tenderness. Extremities: No tenderness, no cyanosis, no clubbing, ROM intact, no edema. R ankle has abrasion to lateral malleolus, no deformity, minimal swelling. ROM of knee, ankle, foot intact. Sensation intact. Cap refill <3sec. Neurologic: Alert and oriented X 3, normal motor function, normal sensory function, no focal deficits noted. Psychologic: Affect normal, judgement normal, mood normal. Current Patient Data Vital Signs Vital Signs Date Time Temp Pulse Resp B/P (MAP) Pulse Ox O2 Delivery O2 Flow Rate FiO2 03/11/19 17:12 98.4 74 16 119/69 (86) 91 Room Air 98.4 EKG EKG [] Radiology/Procedures Radiology/Procedures [] Course & Med Decision Making Course & Med Decision Making Pertinent Labs and Imaging studies reviewed. (See chart for details) 63 y/o F presents for ankle pain. Xrays ordered. Xray shows avulsion fx. Sugar tong splint. Follow up with ortho. I had a detailed discussion regarding the xray results, plan of care, follow up with ortho, pain control with the patient and her . Questions were encouraged and answered. Detailed DC instructions provided. Splint checkd by me and ok. Cristel Disclaimer Dragon Disclaimer This electronic medical record was generated, in whole or in part, using a voice recognition dictation system. Departure Departure Impression: Primary Impression: Ankle fracture Disposition: 01 HOME, SELF-CARE Condition: STABLE Referrals: ROHAN ROTHMAN MD (PCP) RADHA MCCLURE MD Patient Instructions: Ankle Fracture Scripts Morphine Sulfate (MORPHINE SULFATE) 15 Mg Tablet 1 TAB PO TID PRN for BREAKTHROUGH PAIN for 7 Days, #7 TAB 0 Refills Prov: DULCE MARIA FIELDS MD 03/11/19 DULCE MARIA FIELDS MD March 11, 2019 18:49
--- NOTE | 2019-03-11 18:58 | RAD ---
ANKLE RIGHT 3V, FOOT RIGHT 3V History: Fall with ankle pain Comparison: None. Findings: Right ankle: 3 views of the right ankle are submitted. There is a small avulsion fracture at the tip of the fibula, also mild ossific irregularity at the tip of the medial malleolus. Tibiotalar joint space is preserved. There is plantar calcaneal enthesophyte. Right foot: 3 views of the right foot are submitted. No convincing acute fracture is identified of the right foot, small ossific body along the lateral margin of the cuboid been which has a somewhat corticated margin and likely old. IMPRESSION: 1. There are small probably recent avulsion fractures of the tips of the fibula and medial malleolus. 2. Small ossific fragment of the lateral aspect of the cuboid bone is likely older. Electronically signed by: Jose Alfredo Fried MD (03/11/2019 6:55 PM) [facility]
[2019-03-11] MEDS ORDERED: MORP15TA PO (19:08)
== END 2019-03-11 19:40 | disposition home or self-care (01) ==
LOC: ER 16:08
DX: S82.61XA Displaced fracture of lateral malleolus of right fibula, initial encounter for closed fracture (principal); W01.0XXA Fall on same level from slipping, tripping and stumbling without subsequent striking against object, initial encounter; Y93.89 Activity, other specified; Y92.092 Bedroom in other non-institutional residence as the place of occurrence of the external cause; Y99.8 Other external cause status
CPT/HCPCS: 29515; 73610; 73630; 99284-25

== ENCOUNTER 2019-07-01 18:58 | Emergency (ER) | payer OTHER ==
[~2019-07-01] VITALS: Ht 147.3 cm; Wt 83.9 kg
[~2019-07-01 18:58] MED LIST changes: +LISI1TAB20 PO; -LISI1TAB7 PO; +MONT10TA49 PO; -MONT10TA9 PO; +MORP15TA PO
[2019-07-01 19:25] VITALS: BP 124/89
[2019-07-01] MEDS ORDERED: DIPH25CA58 PO (20:05)
[2019-07-01] MEDS ORDERED: TRIA15OI TP (20:05)
--- NOTE | 2019-07-01 20:05 | PHYS DOC ---
Past Medical History Past Medical History: Diabetes-Type II, High Cholesterol, Hypertension Additional Past Medical Histor: NON-COMPLIANT WITH MEDS,SINUS PROBLEMS,KIDNEY CA Past Surgical History: Other Additional Past Surgical Histo: tumor on kidney Alcohol Use: None Drug Use: None Adult General Chief Complaint Chief Complaint: SKIN PROBLEM HPI HPI Patient is a 64 year old female with history of diabetes type 2, hypertension, high cholesterol, who presents today complaining of a pruritic rash to bilateral lower extremities, scalp and forehead that began a month ago. Patient does not know the actual cause of this rash but believes it could be caused by many things including her air conditioning window unit, she believes there could be some insects biting her only when she is in her bathroom. She states she has cleaned the house but the rash has continued. She is currently using soap to control the rash. Review of Systems Review of Systems Constitutional: Denies fever or chills [] Musculoskeletal: Denies back pain or joint pain [] Integument: Reports rash to bilateral lower extremities, forehead and scalp Neurologic: Denies headache, focal weakness or sensory changes [] All other systems were reviewed and found to be within normal limits, except as documented in this note. Allergies Allergies Allergies Coded Allergies Type Severity Reaction Last Updated Verified No Known Drug Allergies 03/04/15 No Physical Exam Physical Exam Constitutional: Well developed, well nourished, no acute distress, non-toxic appearance. [] Skin: No rashes noted on the scalp, forehead with trace amount of erythematous macular rash, bilateral lower extremities with mild amount tiny erythematous macular rash Back: No tenderness, no CVA tenderness. [] Extremities: No tenderness, no cyanosis, no clubbing, ROM intact, no edema. [] Neurologic: Alert and oriented X 3, normal motor function, normal sensory function, no focal deficits noted. [] Psychologic: Affect normal, judgement normal, mood normal. [] Current Patient Data Vital Signs Vital Signs Date Time Temp Pulse Resp B/P (MAP) Pulse Ox O2 Delivery O2 Flow Rate FiO2 07/01/19 19:25 97.9 91 20 124/89 (101) 95 Room Air 97.9 EKG EKG [] Radiology/Procedures Radiology/Procedures [] Course & Med Decision Making Course & Med Decision Making Pertinent Labs and Imaging studies reviewed. (See chart for details) This is a 64-year-old female presenting to the ED today with a rash for 1 month, no known cause. Patient was given prescription of triamcinolone cream and Benadryl. We discussed the importance of hygiene at home with suspicion of this rash being insect bites. Follow-up with PCP and court stenographer in 2 weeks Cristel Disclaimer Dragon Disclaimer This electronic medical record was generated, in whole or in part, using a voice recognition dictation system. Departure Departure Impression: Primary Impression: Rash Disposition: HOME, SELF-CARE Condition: STABLE Referrals: ROHAN ROTHMAN MD (PCP) follow up in 2 weeks LYN TOMAS MD follow up in 2 weeks Patient Instructions: Rash, [id number] Additional Instructions: You were evaluated in the emergency room for a rash, try and maintain very good hygiene at home. Please follow-up with the provided court stenographer as well as your primary care doctor in 2 weeks. Use the medication prescribed as ordered Scripts Diphenhydramine Hcl (BENADRYL) 25 Mg Capsule 1 CAP PO Q6HRS, #30 CAP 0 Refills Prov: SIMRAN REYNOSO APRN 07/01/19 Triamcinolone Acetonide (TRIAMCINOLONE ACETONIDE 0.1% OINT) 15 Gm Oint...g. 1 JOSE TP TID for WOUND CARE, #1 TUBE Prov: SIMRAN REYNOSO APRN 07/01/19 SIMRAN REYNOSO APRN Jul 01, 2019 20:05
== END 2019-07-01 20:11 | disposition home or self-care (01) ==
LOC: ER 18:58
DX: R21 Rash and other nonspecific skin eruption (principal); E11.9 Type 2 diabetes mellitus without complications; E78.00 Pure hypercholesterolemia, unspecified; I10 Essential (primary) hypertension; Z85.528 Personal history of other malignant neoplasm of kidney
CPT/HCPCS: 99283

== ENCOUNTER 2020-01-07 08:58 | Emergency (ER) | payer MEDICARE, OTHER ==
[~2020-01-07] VITALS: Ht 165.1 cm; Wt 91.0 kg
[~2020-01-07 08:58] MED LIST changes: +DIPH25CA58 PO
[2020-01-07] MEDS ORDERED: ONDANSETRON PF 4 MG/2 ML VIAL. IVP ONE (10:30)
[2020-01-07] MEDS ORDERED: KETOROLAC 30 MG/ML VIAL. IVP ONE (10:30)
[2020-01-07] MEDS ORDERED: IV NORMAL SALINE 1000ML BAG 1,000 ML IV ONE (10:30)
--- NOTE | 2020-01-07 10:43 | PHYS DOC ---
Past Medical History Past Medical History: Diabetes-Type II, High Cholesterol, Hypertension Additional Past Medical Histor: NON-COMPLIANT WITH MEDS,SINUS PROBLEMS,KIDNEY CA Past Surgical History: Other Additional Past Surgical Histo: tumor on kidney Smoking Status: Never Smoker Alcohol Use: None Drug Use: None Adult General Chief Complaint Chief Complaint: NAUSEA/VOMITING/DIARRHA HPI HPI Patient is a 64 year old female who presents with cough with white or yellow mucus production, sinus congestion, chills and body aches for the last 2 weeks. She has been to her doctor gave her Bactrim antibiotic, Phenergan cough syrup. Patient states that her symptoms continue and she is starting to feel weak. She vomited once this morning for the first time. Patient states she has been eating and drinking appropriately. Patient has a history of hypertension, diabetes, high cholesterol. Patient also has a history of being noncompliant with medications. She states she has been taking her medications. Rates her over all pain a 8/10. Patient has not taken Ibuprofen or Tylenol since last night. Review of Systems Review of Systems Constitutional: fever or chills [] Respiratory: cough or denies shortness of breath [] GI: Denies abdominal pain. + nausea, +vomiting, denies bloody stools or diarrhea [] Musculoskeletal: Bodyaches. Denies back pain or joint pain [] All other systems were reviewed and found to be within normal limits, except as documented in this note. Current Medications Current Medications Current Medications Medications (Trade) Dose Ordered Sig/Ko Start Time Stop Time Status Last Admin Dose Admin Ketorolac Tromethamine (Toradol 30mg Vial) 30 mg 1X ONCE 01/07/20 10:30 01/07/20 10:33 DC 01/07/20 10:30 30 MG Ondansetron HCl (Zofran) 4 mg 1X ONCE 01/07/20 10:30 01/07/20 10:33 DC 01/07/20 10:30 4 MG Piperacillin Sod/ Tazobactam Sod 3.375 gm/Sodium Chloride 50 ml @ 100 mls/hr 1X ONCE 01/07/20 11:00 01/07/20 11:30 DC 01/07/20 11:00 100 MLS/HR Sodium Chloride 1,000 ml @ 1,000 mls/hr 1X ONCE 01/07/20 10:30 01/07/20 11:30 DC 01/07/20 10:30 1,000 MLS/HR Allergies Allergies Allergies Coded Allergies Type Severity Reaction Last Updated Verified No Known Drug Allergies 03/04/15 No Physical Exam Physical Exam Constitutional: Well developed, well nourished, no acute distress, non-toxic appearance. [] HENT: Normocephalic, atraumatic, bilateral external ears normal, oropharynx moist, no oral exudates, nose normal. [] Eyes: PERRLA, EOMI, conjunctiva normal, no discharge. [] Neck: Normal range of motion, no tenderness, supple, no stridor. [] Cardiovascular:Heart rate regular rhythm, no murmur [] Lungs & Thorax: Bilateral breath sounds clear to auscultation [] Abdomen: Bowel sounds normal, soft, no tenderness, no masses, no pulsatile masses. [] Skin: Warm, dry, no erythema, no rash. [] Back: No tenderness, no CVA tenderness. [] Extremities: No tenderness, no cyanosis, no clubbing, ROM intact, no edema. [] Neurologic: Alert and oriented X 3, normal motor function, normal sensory function, no focal deficits noted. [] Psychologic: Affect normal, judgement normal, mood normal. Normal Physical Exam [] Current Patient Data Vital Signs Vital Signs Date Time Temp Pulse Resp B/P (MAP) Pulse Ox O2 Delivery O2 Flow Rate FiO2 01/07/20 10:20 98.3 74 18 137/88 (104) 96 Room Air 98.3 Lab Values Laboratory Tests Test 01/07/20 09:52 01/07/20 10:35 01/07/20 10:55 Urine Collection Type Unknown Urine Color Yellow Urine Clarity Clear Urine pH 5.5 (<5.0-8.0) Urine Specific [place] 1.010 (1.000-1.030) Urine Protein Negative mg/dL (NEG-TRACE) Urine Glucose (UA) Negative mg/dL (NEG) Urine Ketones (Stick) Negative mg/dL (NEG) Urine Blood Negative (NEG) Urine Nitrite Negative (NEG) Urine Bilirubin Negative (NEG) Urine Urobilinogen Dipstick 0.2 mg/dL (0.2 mg/dL) Urine Leukocyte Esterase Negative (NEG) Urine RBC Rare /HPF (0-2) Urine WBC 1-4 /HPF (0-4) Urine Squamous Epithelial Cells Many /LPF Urine Transitional Epithelial Cells Few /LPF Urine Renal Epithelial Cells Occ /LPF Urine Bacteria Few /HPF (0-FEW) Influenza Type A Antigen Negative (NEGATIVE) Influenza Type B Antigen Negative (NEGATIVE) White Blood Count 7.7 x10^3/uL (4.0-11.0) Red Blood Count 4.87 x10^6/uL (3.50-5.40) Hemoglobin 14.5 g/dL (12.0-15.5) Hematocrit 42.9 % (36.0-47.0) Mean Corpuscular Volume 88 fL (79-100) Mean Corpuscular Hemoglobin 30 pg (25-35) Mean Corpuscular Hemoglobin Concent 34 g/dL (31-37) Red Cell Distribution Width 14.2 % (11.5-14.5) Platelet Count 260 x10^3/uL (140-400) Neutrophils (%) (Auto) 71 % (31-73) Lymphocytes (%) (Auto) 21 % (24-48) L Monocytes (%) (Auto) 6 % (0-9) Eosinophils (%) (Auto) 1 % (0-3) Basophils (%) (Auto) 0 % (0-3) Neutrophils # (Auto) 5.5 x10^3/uL (1.8-7.7) Lymphocytes # (Auto) 1.6 x10^3/uL (1.0-4.8) Monocytes # (Auto) 0.5 x10^3/uL (0.0-1.1) Eosinophils # (Auto) 0.1 x10^3/uL (0.0-0.7) Basophils # (Auto) 0.0 x10^3/uL (0.0-0.2) Sodium Level 136 mmol/L (136-145) Potassium Level 4.6 mmol/L (3.5-5.1) Chloride Level 98 mmol/L (98-107) Carbon Dioxide Level 26 mmol/L (21-32) Anion Gap 12 (6-14) Blood Urea Nitrogen 14 mg/dL (7-20) Creatinine 0.7 mg/dL (0.6-1.0) Estimated GFR (Cockcroft-Gault) 84.0 BUN/Creatinine Ratio 20 (6-20) Glucose Level 137 mg/dL (70-99) H Calcium Level 9.1 mg/dL (8.5-10.1) Total Bilirubin 0.6 mg/dL (0.2-1.0) Aspartate Amino Transferase (AST) 36 U/L (15-37) Alanine Aminotransferase (ALT) 62 U/L (14-59) H Alkaline Phosphatase 138 U/L (46-116) H Troponin I Quantitative < 0.017 ng/mL (0.000-0.055) Total Protein 7.8 g/dL (6.4-8.2) Albumin 4.1 g/dL (3.4-5.0) Albumin/Globulin Ratio 1.1 (1.0-1.7) Laboratory Tests 01/07/20 10:55 Laboratory Tests 01/07/20 10:55 EKG EKG [] Radiology/Procedures Radiology/Procedures [] Impressions: [address] [id number] IMAGING REPORT Signed PATIENT: TRISTON MERCER ACCOUNT: [id number] : 1955 LOCATION: ER AGE: 64 SEX: F EXAM STATUS: REG ER ORD. PHYSICIAN: YAMIL SHARMA APRN REASON: cough PROCEDURE: CHEST PA & LATERAL Chest, PA and Lateral: Technique: PA and lateral views of the chest were obtained. History: Cough. Comparison: 03/24/2018. Findings: Low lung volumes accentuate heart size and pulmonary vascularity.. Minimal bibasilar lung airspace opacities.. The pleural margins are clear. Impression: Minimal bibasilar lung airspace opacities likely atelectasis or infiltrates.. Electronically signed by: Garett Tapia MD (01/07/2020 10:53 AM) [id number] DICTATED and SIGNED BY: GARETT TAPIA MD DATE: 01/07/[address] [id number] IMAGING REPORT Signed PATIENT: TRISTON MERCER ACCOUNT: [id number] : 1955 LOCATION: ER AGE: 64 SEX: F EXAM STATUS: REG ER ORD. PHYSICIAN: YAMIL SHARMA APRN REASON: ABDNORMAL XRAY PROCEDURE: CT CHEST WO CONTRAST Examination: CT chest without contrast HISTORY: History of abnormal chest x-ray COMPARISON: None available Technique: Axial CT images of chest were performed without contrast. Coronal and sagittal reformats are performed Exposure: One or more of the following individualized dose reduction techniques were utilized for this examination: 1. Automated exposure control 2. Adjustment of the mA and/or kV according to patient size 3. Use of iterative reconstruction technique FINDINGS: The visualized thyroid gland grossly appears unremarkable. The central airways are patent with the heart size grossly appears unremarkable. Coronary artery calcifications identified. No evidence of radiologically significant mediastinal lymphadenopathy is identified. Minimal bibasilar lung airspace opacities probably atelectasis or infiltrates. The visualized noncontrasted liver, spleen, adrenals grossly appears unremarkable. Mild degenerative changes thoracic spine. IMPRESSION: 1. Minimal bibasilar lung airspace opacities likely atelectasis or infiltrates. Electronically signed by: Garett Tapia MD (01/07/2020 11:44 AM) [id number] DICTATED and SIGNED BY: GARETT TAPIA MD DATE: 01/07/20 1144 Course & Med Decision Making Course & Med Decision Making Pertinent Labs and Imaging studies reviewed. (See chart for details) Afebrile and vital signs wnl. Denies soa, chest pain, abdominal pain, diarrhea, dysuria, headache, dizziness, visiual changes, focal weakness, numbness or tingling, travel. Speaks in full clear sentences. Skin pink warm and dry. Lungs are clear to auscultation. Abdomen is soft and nontender. No extremity swelling. PERRLA. [] Dragon Disclaimer Dragon Disclaimer This electronic medical record was generated, in whole or in part, using a voice recognition dictation system. Departure Departure Impression: Primary Impression: Pneumonia Disposition: 01 HOME, SELF-CARE Condition: STABLE Referrals: RAYSHAWN KAPLAN MD (PCP) Patient Instructions: Pneumonia, Adult, [id number] Additional Instructions: Stay inside and away from others that are sick. Follow up with primary care provider. Take medication as prescribed. Return to the ED only if you begin having respiratory distress. Take Ibuprofen or Tylenol for pain and fever regularly. Drink plenty of fluids. Scripts Levofloxacin (LEVAQUIN) 500 Mg Tablet 1 TAB PO DAILY for 7 Days, #7 TAB 0 Refills Prov: YAMIL SHARMA APRN 01/07/20 Methylprednisolone (MEDROL) 4 Mg Tab.ds.pk 1 PKG PO UD, #1 PKG Prov: YAMIL SHARMA APRN 01/07/20 Ondansetron (ONDANSETRON ODT) 4 Mg Tab.rapdis 1 TAB PO PRN Q6-8HRS, #20 TAB Prov: YAMIL SHARMA APRN 01/07/20 Problem Qualifiers Primary Impression: Pneumonia Pneumonia type: due to unspecified organism Laterality: bilateral Lung location: unspecified part of lung Qualified Codes: J18.9 - Pneumonia, unspecified organism YAMIL SHARMA MARKET RESEARCH ASSISTANT Jan 07, 2020 10:43
[2020-01-07 10:48] LABS: BILIRUBIN,URINE NEGATIVE (NEG); CLARITY,URINE CLEAR; COLOR,URINE YELLOW; NITRITE,URINE NEGATIVE (NEG); PH,URINE 5.5 (<5.0-8.0); PROTEIN,URINE NEGATIVE (NEG-TRACE); UROBILINOGEN,URINE 0.2 mg/dL (0.2 mg/dL)
--- NOTE | 2020-01-07 10:56 | RAD ---
Chest, PA and Lateral: Technique: PA and lateral views of the chest were obtained. History: Cough. Comparison: 03/24/2018. Findings: Low lung volumes accentuate heart size and pulmonary vascularity.. Minimal bibasilar lung airspace opacities.. The pleural margins are clear. Impression: Minimal bibasilar lung airspace opacities likely atelectasis or infiltrates.. Electronically signed by: Garett Tapia MD (01/07/2020 10:53 AM) [id number]
[2020-01-07] MEDS ORDERED: PIPERACILLIN/TAZOBACTAM 3.375 GM in IV NORMAL SALINE 50ML 50 ML IV ONE (11:00)
[2020-01-07 11:10] LABS: SQUAMOUS EPITHELIAL CELL,UR MANY /LPF
[2020-01-07 11:11] LABS: BACTERIA,URINE FEW /HPF (0-FEW); RBC,URINE RARE /HPF (0-2)
[2020-01-07 11:18] LABS: BASO % 0 % (0-3); EOS # 0.1 x10^3/uL (0.0-0.7); EOS % 1 % (0-3); HEMATOCRIT 42.9 % (36.0-47.0); HEMOGLOBIN 14.5 g/dL (12.0-15.5); LYMPH # 1.6 x10^3/uL (1.0-4.8); LYMPH % 21 % (24-48); MEAN CORPUSCULAR HEMOGLOBIN 30 pg (25-35); MEAN CORPUSCULAR HGB CONC 34 g/dL (31-37); MEAN CORPUSCULAR VOLUME 88 fL (79-100); MONO # 0.5 x10^3/uL (0.0-1.1); MONO % 6 % (0-9); NEUT # 5.5 x10^3/uL (1.8-7.7); NEUT % 71 % (31-73); PLATELET COUNT 260 x10^3/uL (140-400); RED BLOOD COUNT 4.87 x10^6/uL (3.50-5.40); RED CELL DISTRIBUTION WIDTH 14.2 % (11.5-14.5); WHITE BLOOD COUNT 7.7 x10^3/uL (4.0-11.0)
[2020-01-07 11:28] LABS: CALCIUM 9.1 mg/dL (8.5-10.1); CREATININE 0.7 mg/dL (0.6-1.0); POTASSIUM 4.6 mmol/L (3.5-5.1)
[2020-01-07 11:34] LABS: ALBUMIN 4.1 g/dL (3.4-5.0); ALBUMIN/GLOBULIN RATIO 1.1 (1.0-1.7); TOTAL BILIRUBIN 0.6 mg/dL (0.2-1.0); TOTAL PROTEIN 7.8 g/dL (6.4-8.2)
[2020-01-07 11:46] LABS: INFLUENZA A PATIENT NEGATIVE (NEGATIVE); INFLUENZA B PATIENT NEGATIVE (NEGATIVE)
--- NOTE | 2020-01-07 11:47 | RAD ---
Examination: CT chest without contrast HISTORY: History of abnormal chest x-ray COMPARISON: None available Technique: Axial CT images of chest were performed without contrast. Coronal and sagittal reformats are performed Exposure: One or more of the following individualized dose reduction techniques were utilized for this examination: 1. Automated exposure control 2. Adjustment of the mA and/or kV according to patient size 3. Use of iterative reconstruction technique FINDINGS: The visualized thyroid gland grossly appears unremarkable. The central airways are patent with the heart size grossly appears unremarkable. Coronary artery calcifications identified. No evidence of radiologically significant mediastinal lymphadenopathy is identified. Minimal bibasilar lung airspace opacities probably atelectasis or infiltrates. The visualized noncontrasted liver, spleen, adrenals grossly appears unremarkable. Mild degenerative changes thoracic spine. IMPRESSION: 1. Minimal bibasilar lung airspace opacities likely atelectasis or infiltrates. Electronically signed by: Garett Tapia MD (01/07/2020 11:44 AM) [id number]
[2020-01-07] MEDS ORDERED: ONDA4TAB12 PO (11:56)
[2020-01-07] MEDS ORDERED: METH4TAB2 PO (11:56)
[2020-01-07] MEDS ORDERED: LEVO500T59 PO (11:56)
[2020-01-07 12:30] VITALS: BP 131/63
== END 2020-01-07 12:50 | disposition home or self-care (01) ==
LOC: ER 08:58
DX: J18.9 Pneumonia, unspecified organism (principal); E11.9 Type 2 diabetes mellitus without complications; E78.00 Pure hypercholesterolemia, unspecified; I10 Essential (primary) hypertension
CPT/HCPCS: 36415; 71046; 71250; 80053; 81001; 84484; 85025; 87040; 87804; 96365; 96375; 99285; J1885; J2405; J2543; J7030

== ENCOUNTER 2020-01-23 10:23 | Emergency (ER) | payer MEDICARE ==
[~2020-01-23] VITALS: Ht 149.9 cm; Wt 89.0 kg
[~2020-01-23 10:23] MED LIST changes: +LEVO500T59 PO; +METH4TAB2 PO; +ONDA4TAB12 PO
[2020-01-23 11:22] LABS: BILIRUBIN,URINE NEGATIVE (NEG); CLARITY,URINE CLEAR; COLOR,URINE YELLOW; NITRITE,URINE NEGATIVE (NEG); PH,URINE 5.5 (<5.0-8.0); PROTEIN,URINE NEGATIVE (NEG-TRACE); UROBILINOGEN,URINE 0.2 mg/dL (0.2 mg/dL)
[2020-01-23 11:33] LABS: CREATININE 0.7 mg/dL (0.6-1.0); POTASSIUM 4.6 mmol/L (3.5-5.1)
[2020-01-23 11:35] LABS: BASO % 0 % (0-3); EOS # 0.1 x10^3/uL (0.0-0.7); EOS % 1 % (0-3); HEMATOCRIT 40.5 % (36.0-47.0); HEMOGLOBIN 13.4 g/dL (12.0-15.5); INFLUENZA A PATIENT NEGATIVE (NEGATIVE); INFLUENZA B PATIENT NEGATIVE (NEGATIVE); LYMPH % 29 % (24-48); MEAN CORPUSCULAR HEMOGLOBIN 30 pg (25-35); MEAN CORPUSCULAR HGB CONC 33 g/dL (31-37); MEAN CORPUSCULAR VOLUME 90 fL (79-100); MONO # 0.6 x10^3/uL (0.0-1.1); MONO % 8 % (0-9); NEUT # 4.3 x10^3/uL (1.8-7.7); NEUT % 62 % (31-73); PLATELET COUNT 243 x10^3/uL (140-400); RED BLOOD COUNT 4.52 x10^6/uL (3.50-5.40); RED CELL DISTRIBUTION WIDTH 15.3 % (11.5-14.5); WHITE BLOOD COUNT 6.9 x10^3/uL (4.0-11.0)
[2020-01-23 11:41] LABS: BACTERIA,URINE 0 /HPF (0-FEW); RBC,URINE 0 /HPF (0-2); SQUAMOUS EPITHELIAL CELL,UR MOD /LPF; WBC,URINE OCC /HPF (0-4)
[2020-01-23 11:47] LABS: ALBUMIN 3.7 g/dL (3.4-5.0); ALBUMIN/GLOBULIN RATIO 1.1 (1.0-1.7); TOTAL BILIRUBIN 0.8 mg/dL (0.2-1.0); TOTAL PROTEIN 7.2 g/dL (6.4-8.2)
[2020-01-23 11:50] LABS: PROTHROMBIN TIME PATIENT 12.6 SEC (11.7-14.0)
--- NOTE | 2020-01-23 11:58 | RAD ---
PORTABLE CHEST 1V History: Shortness of breath. Comparison: 01/07/2020. FINDINGS: Cardiomediastinal silhouette is stable. Low lung volumes. No evidence of pneumothorax. No evidence of pleural effusion. Mild opacity in left lung base is similar to the previous study. No new consolidation is seen. Bones appear grossly intact. IMPRESSION: Low lung volumes. Mild left lung base infiltrate or atelectasis is stable. Electronically signed by: Robe Celestin MD (01/23/2020 11:55 AM) [id number]
[2020-01-23] MEDS ORDERED: ONDANSETRON PF 4 MG/2 ML VIAL. IVP ONE (12:00)
[2020-01-23] MEDS ORDERED: IV NORMAL SALINE 1000ML BAG 1,000 ML IV ONE (12:00)
--- NOTE | 2020-01-23 12:04 | PHYS DOC ---
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 Patient was diagnosed with pneumonia on January 06, was put on antibiotic, completed it but continue to have cough, not feeling better. Patient has worsening nausea vomiting and abdominal pain so she came here today. Patient denies any recent exposure to anybody who test positive for COVID-19. Patient denies any chest pain. Review of Systems Review of Systems Constitutional: Denies fever or chills [] Eyes: Denies change in visual acuity, redness, or eye pain [] HENT: Denies nasal congestion or sore throat [] Respiratory: Positive for cough and shortness of breath [] Cardiovascular: No additional information not addressed in HPI [] GI: Positive for abdominal pain, nausea, vomiting, and diarrhea [] : Denies dysuria or hematuria [] Musculoskeletal: Denies back pain or joint pain [] Integument: Denies rash or skin lesions [] Neurologic: Denies headache, focal weakness or sensory changes [] Endocrine: Denies polyuria or polydipsia [] All other systems were reviewed and found to be within normal limits, except as documented in this note. Current Medications Current Medications Current Medications Medications (Trade) Dose Ordered Sig/Ko Start Time Stop Time Status Last Admin Dose Admin Info (CONTRAST GIVEN -- Rx MONITORING) 1 each PRN DAILY PRN 01/23/20 12:30 01/23/20 14:28 DC Iohexol (Omnipaque 300 Mg/ml) 75 ml 1X ONCE 01/23/20 12:30 01/23/20 12:31 DC 01/23/20 12:41 75 ML Ondansetron HCl (Zofran) 8 mg 1X ONCE 01/23/20 12:00 01/23/20 12:01 DC 01/23/20 12:40 8 MG Sodium Chloride 1,000 ml @ 1,000 mls/hr 1X ONCE 01/23/20 12:01/23/20 12:59 DC 01/23/20 12:41 1,000 MLS/HR Allergies Allergies Allergies Coded Allergies Type Severity Reaction Last Updated Verified No Known Drug Allergies 03/04/15 No Physical Exam Physical Exam Constitutional: Well developed, well nourished, no acute distress, non-toxic appearance. [] HENT: Normocephalic, atraumatic, bilateral external ears normal, oropharynx moist, no oral exudates, nose normal. [] Eyes: PERRLA, EOMI, conjunctiva normal, no discharge. [] Neck: Normal range of motion, no tenderness, supple, no stridor. [] Cardiovascular:Heart rate regular rhythm, no murmur [] Lungs & Thorax: Bilateral breath sounds clear to auscultation [] Abdomen: Bowel sounds normal, soft, There is tenderness to palpation diffusely. , no masses, no pulsatile masses. [] Skin: Warm, dry, no erythema, no rash. [] Back: No tenderness, no CVA tenderness. [] Extremities: No tenderness, no cyanosis, no clubbing, ROM intact, no edema. [] Neurologic: Alert and oriented X 3, normal motor function, normal sensory function, no focal deficits noted. [] Psychologic: Affect normal, judgement normal, mood normal. [] Current Patient Data Vital Signs Vital Signs Date Time Temp Pulse Resp B/P (MAP) Pulse Ox O2 Delivery O2 Flow Rate FiO2 01/23/20 14:05 78 156/77 (103) 95 Room Air 01/23/20 10:36 98.4 20 98.4 Lab Values Laboratory Tests Test 01/23/20 11:00 01/23/20 11:25 White Blood Count 6.9 x10^3/uL (4.0-11.0) Red Blood Count 4.52 x10^6/uL (3.50-5.40) Hemoglobin 13.4 g/dL (12.0-15.5) Hematocrit 40.5 % (36.0-47.0) Mean Corpuscular Volume 90 fL (79-100) Mean Corpuscular Hemoglobin 30 pg (25-35) Mean Corpuscular Hemoglobin Concent 33 g/dL (31-37) Red Cell Distribution Width 15.3 % (11.5-14.5) H Platelet Count 243 x10^3/uL (140-400) Neutrophils (%) (Auto) 62 % (31-73) Lymphocytes (%) (Auto) 29 % (24-48) Monocytes (%) (Auto) 8 % (0-9) Eosinophils (%) (Auto) 1 % (0-3) Basophils (%) (Auto) 0 % (0-3) Neutrophils # (Auto) 4.3 x10^3/uL (1.8-7.7) Lymphocytes # (Auto) 2.0 x10^3/uL (1.0-4.8) Monocytes # (Auto) 0.6 x10^3/uL (0.0-1.1) Eosinophils # (Auto) 0.1 x10^3/uL (0.0-0.7) Basophils # (Auto) 0.0 x10^3/uL (0.0-0.2) Prothrombin Time 12.6 SEC (11.7-14.0) Prothrombin Time INR 1.0 (0.8-1.1) Activated Partial Thromboplast Time 26 SEC (24-38) Urine Collection Type Unknown Urine Color Yellow Urine Clarity Clear Urine pH 5.5 (<5.0-8.0) Urine Specific [place] 1.010 (1.000-1.030) Urine Protein Negative mg/dL (NEG-TRACE) Urine Glucose (UA) 100 mg/dL (NEG) Urine Ketones (Stick) Negative mg/dL (NEG) Urine Blood Negative (NEG) Urine Nitrite Negative (NEG) Urine Bilirubin Negative (NEG) Urine Urobilinogen Dipstick 0.2 mg/dL (0.2 mg/dL) Urine Leukocyte Esterase Negative (NEG) Urine RBC 0 /HPF (0-2) Urine WBC Occ /HPF (0-4) Urine Squamous Epithelial Cells Mod /LPF Urine Renal Epithelial Cells Occ /LPF Urine Bacteria 0 /HPF (0-FEW) Sodium Level 141 mmol/L (136-145) Potassium Level 4.6 mmol/L (3.5-5.1) Chloride Level 104 mmol/L (98-107) Carbon Dioxide Level 26 mmol/L (21-32) Anion Gap 11 (6-14) Blood Urea Nitrogen 17 mg/dL (7-20) Creatinine 0.7 mg/dL (0.6-1.0) Estimated GFR (Cockcroft-Gault) 84.0 BUN/Creatinine Ratio 24 (6-20) H Glucose Level 174 mg/dL (70-99) H Lactic Acid Level 1.4 mmol/L (0.4-2.0) Calcium Level 9.0 mg/dL (8.5-10.1) Total Bilirubin 0.8 mg/dL (0.2-1.0) Aspartate Amino Transferase (AST) 29 U/L (15-37) Alanine Aminotransferase (ALT) 76 U/L (14-59) H Alkaline Phosphatase 108 U/L (46-116) Troponin I Quantitative < 0.017 ng/mL (0.000-0.055) Total Protein 7.2 g/dL (6.4-8.2) Albumin 3.7 g/dL (3.4-5.0) Albumin/Globulin Ratio 1.1 (1.0-1.7) Lipase 1185 U/L (73-393) H Influenza Type A Antigen Negative (NEGATIVE) Influenza Type B Antigen Negative (NEGATIVE) Group A Streptococcus Rapid Negative (NEGATIVE) Laboratory Tests 01/23/20 11:00 Laboratory Tests 01/23/20 11:00 EKG EKG [] Radiology/Procedures Radiology/Procedures [][facility] [address] [place], [place] [id number] IMAGING REPORT Signed PATIENT: TRISTON MERCER ACCOUNT: [id number] : 1955 LOCATION: ER AGE: 64 SEX: F EXAM STATUS: REG ER ORD. PHYSICIAN: ANDRZEJ LUIS DO REASON: abdominal pain, nausea, vomiting PROCEDURE: CT ABD PELV W/ IV CONTRST ONLY CT CHEST WO CONTRAST, CT ABD PELV W/ IV CONTRST ONLY Indication: Cough, shortness of breath. Exposure: One or more of the following individualized dose reduction techniques were utilized for this examination: 1. Automated exposure control 2. Adjustment of the mA and/or kV according to patient size 3. Use of iterative reconstruction technique. Technique: Images obtained through the chest without contrast. Images obtained through the abdomen and pelvis during intravenous contrast. No oral contrast per request. CHEST: Comparison with 01/07/2020. No evidence of aortic aneurysm. Vascular exam otherwise limited without intravenous contrast. Mild coronary artery calcification. No pericardial effusion. Partially visualized thyroid unremarkable. No evidence of pathologic lymph node enlargement. No evidence of pleural effusion. Lungs appear grossly clear without dominant mass or infiltrate. Minimal atelectasis. Trachea and mainstem bronchi are patent. No evidence of pneumothorax. Vertebral body height and alignment are intact. Lucent lesion within the T3 vertebral body most likely a benign hemangioma. Appears similar as previous study. No aggressive bone destruction is seen. Abdomen pelvis: Liver unremarkable. Spleen unremarkable. Pancreas unremarkable. No evidence of adrenal mass. The kidneys demonstrate symmetric enhancement. There is mild irregularity of the posterior aspect of the upper pole the right kidney, could be due to some mild focal scarring or atrophy. No dominant renal mass is identified. No evidence of hydronephrosis. No calcified gallstone. The aorta is nonaneurysmal. No significant pathologic lymph node enlargement is identified. Stomach is not distended. No significant small bowel distention. No evidence of acute colitis. The appendix appears normal. No evidence of ascites. No evidence of pneumoperitoneum. Urinary bladder appears unremarkable. No evidence of pelvic mass. Degenerative spondylosis. Vertebral body height is intact. Mild degenerative changes at the skeletal pelvis. IMPRESSION: No acute findings are identified in the chest, abdomen or pelvis. 2. Mild irregularity at the posterior upper pole the right kidney, most likely due to some focal scarring or atrophy. Electronically signed by: Robe Celestin MD (01/23/2020 1:27 PM) [id number] DICTATED and SIGNED BY: ROBE CELESTIN MD DATE: 01/23/20 1327 Course & Med Decision Making Course & Med Decision Making Pertinent Labs and Imaging studies reviewed. (See chart for details) Patient is a 64-year-old female who was evaluated in the ER today due to nausea, vomiting, diarrhea, abdominal pain, cough, fever and chills. Chest x-ray, CT scan her chest and abdomen pelvic did not show any acute problem, no infiltration. Patient lipase is slightly elevated to about [address] scan of the abdomen pelvic did not show an inflamed pancreas. Patient will be di scharged home, she will need to follow-up with her family doctor for reevaluation this week. Dragon Disclaimer Dragon Disclaimer This electronic medical record was generated, in whole or in part, using a voice recognition dictation system. Departure Departure Impression: Primary Impression: Gastroenteritis Additional Impression: Viral syndrome Disposition: HOME, SELF-CARE Condition: STABLE Referrals: RAYSHAWN KAPLAN MD (PCP) Patient Instructions: Salmonella Gastroenteritis, Pediatric, Viral Syndrome Additional Instructions: Thank you for visiting our Emergency Department. We appreciate you trusting us with your care. If any additional problems come up don't hesitate to return to visit us. Please follow up with your primary care provider so they can plan additional care if needed and know about the problem that you had. If symptoms worsen come back to the Emergency Department. Any concerning symptoms that start such as chest pain, shortness of air, weakness or numbness on one side of the body, running high fevers or any other concerning symptoms return to the ER. Problem Qualifiers ANDRZEJ LUIS DO Jan 23, 2020 12:04
[2020-01-23] MEDS ORDERED: CONTRAST GIVEN. MC PRN (12:30)
[2020-01-23] MEDS ORDERED: IOHEXOL 300 MG/ML 100ML VIAL. IV ONE (12:30)
--- NOTE | 2020-01-23 13:30 | RAD ---
CT CHEST WO CONTRAST, CT ABD PELV W/ IV CONTRST ONLY Indication: Cough, shortness of breath. Exposure: One or more of the following individualized dose reduction techniques were utilized for this examination: 1. Automated exposure control 2. Adjustment of the mA and/or kV according to patient size 3. Use of iterative reconstruction technique. Technique: Images obtained through the chest without contrast. Images obtained through the abdomen and pelvis during intravenous contrast. No oral contrast per request. CHEST: Comparison with 01/07/2020. No evidence of aortic aneurysm. Vascular exam otherwise limited without intravenous contrast. Mild coronary artery calcification. No pericardial effusion. Partially visualized thyroid unremarkable. No evidence of pathologic lymph node enlargement. No evidence of pleural effusion. Lungs appear grossly clear without dominant mass or infiltrate. Minimal atelectasis. Trachea and mainstem bronchi are patent. No evidence of pneumothorax. Vertebral body height and alignment are intact. Lucent lesion within the T3 vertebral body most likely a benign hemangioma. Appears similar as previous study. No aggressive bone destruction is seen. Abdomen pelvis: Liver unremarkable. Spleen unremarkable. Pancreas unremarkable. No evidence of adrenal mass. The kidneys demonstrate symmetric enhancement. There is mild irregularity of the posterior aspect of the upper pole the right kidney, could be due to some mild focal scarring or atrophy. No dominant renal mass is identified. No evidence of hydronephrosis. No calcified gallstone. The aorta is nonaneurysmal. No significant pathologic lymph node enlargement is identified. Stomach is not distended. No significant small bowel distention. No evidence of acute colitis. The appendix appears normal. No evidence of ascites. No evidence of pneumoperitoneum. Urinary bladder appears unremarkable. No evidence of pelvic mass. Degenerative spondylosis. Vertebral body height is intact. Mild degenerative changes at the skeletal pelvis. IMPRESSION: No acute findings are identified in the chest, abdomen or pelvis. 2. Mild irregularity at the posterior upper pole the right kidney, most likely due to some focal scarring or atrophy. Electronically signed by: Robe Celestin MD (01/23/2020 1:27 PM) [id number]
--- NOTE | 2020-01-23 13:34 | EKG ---
[facility] [address] [place] [address] Test Date: 2020-01-23 Test Time: 11:21:23 Pat Name: TRISTON MERCER Department: Room: Gender: F [employer] Teacher: : 1955 Requested By: ANDRZEJ LUIS Order Number: [id number] Reading MD: Anatoly Riojas MD Measurements Intervals [place] Rate: 87 P: -22 OK: 148 QRS: -13 QRSD: 68 T: 27 QT: 354 QTc: 427 Interpretive Statements SINUS RHYTHM Electronically Signed On 01-24-2020 9:36:46 CDT by Anatoly Riojas MD
[2020-01-23 14:05] VITALS: BP 156/77
== END 2020-01-23 14:28 | disposition home or self-care (01) ==
LOC: ER 10:23
DX: K52.9 Noninfective gastroenteritis and colitis, unspecified (principal); B34.9 Viral infection, unspecified; R05 Cough; E11.9 Type 2 diabetes mellitus without complications; I10 Essential (primary) hypertension; E78.00 Pure hypercholesterolemia, unspecified
CPT/HCPCS: 36415; 71045; 71250; 74177; 80053; 81001; 83605; 83690; 84484; 85025; 85610; 85730; 87040; 87070; 87804; 87880; 93005; 96361; 96374; 99285; J2405; J7030; Q9967

== ENCOUNTER 2020-06-24 17:59 | Emergency (ER) | payer MEDICARE ==
[~2020-06-24] VITALS: Ht 147.3 cm; Wt 86.8 kg
--- NOTE | 2020-06-24 18:54 | PHYS DOC ---
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 Patient states she was seen by her PCP last week and Rx an antibiotic but states she is not better. Patient unsure of which antiboitic. Patient cough with sputum production. Patient had negative covid test in April and May. here in ER with same complaint. Review of Systems: Review of Systems: Constitutional: positive subjective fever Eyes: Denies change in visual acuity. [] HENT: positive nasal congestion. [] Respiratory: positive cough with sputum Cardiovascular: Denies chest pain or edema. [] GI: Denies abdominal pain, nausea, vomiting, bloody stools or diarrhea. [] : Denies dysuria. [] Musculoskeletal: Denies back pain or joint pain. [] Integument: Denies rash. [] Neurologic: Denies headache, focal weakness or sensory changes. [] Endocrine: Denies polyuria or polydipsia. [] Lymphatic: Denies swollen glands. [] Psychiatric: Denies depression or anxiety. [] Heart Score: Risk Factors: Risk Factors: DM, Current or recent (<one month) smoker, HTN, HLP, family history of CAD, obesity. Risk Scores: Score 0 - 3: 2.5% MACE over next 6 weeks - Discharge Home Score 4 - 6: 20.3% MACE over next 6 weeks - Admit for Clinical Observation Score 7 - 10: 72.7% MACE over next 6 weeks - Early Invasive Strategies Allergies: Allergies: Allergies Coded Allergies Type Severity Reaction Last Updated Verified No Known Drug Allergies 03/04/15 No Physical Exam: PE: Constitutional: Well developed, well nourished, no acute distress, non-toxic appearance. [] HENT: Normocephalic, atraumatic, bilateral external ears normal, oropharynx moist, no oral exudates, nose normal. [] Eyes: PERRLA, EOMI, conjunctiva normal, no discharge. [] Neck: Normal range of motion, no tenderness, supple, no stridor. [] Cardiovascular:Heart rate regular rhythm, no murmur [] Lungs & Thorax: Bilateral breath sounds clear to auscultation [] Abdomen: Bowel sounds normal, soft, no tenderness, no masses, no pulsatile masses. [] Skin: Warm, dry, no erythema, no rash. [] Back: No tenderness, no CVA tenderness. [] Extremities: No tenderness, no cyanosis, no clubbing, ROM intact, no edema. [] Neurologic: Alert and oriented X 3, normal motor function, normal sensory function, no focal deficits noted. [] Psychologic: Affect normal, judgement normal, mood normal. [] Current Patient Data: Vital Signs: Vital Signs Date Time Temp Pulse Resp B/P (MAP) Pulse Ox O2 Delivery O2 Flow Rate FiO2 06/24/20 18:39 98.3 78 20 138/69 (92) 96 Room Air 98.3 EKG: EKG: [] Radiology/Procedures: Radiology/Procedures: [] Course & Med Decision Making: Course & Med Decision Making Pertinent Labs and Imaging studies reviewed. (See chart for details) []Chest Xray normal. Will Rx zithromax. Dragon Disclaimer: [employer] Disclaimer: This electronic medical record was generated, in whole or in part, using a voice recognition dictation system. Departure Departure Impression: Primary Impression: Bronchitis Additional Impression: Person under investigation for COVID-19 Disposition: 01 HOME, SELF-CARE Condition: STABLE Referrals: RAYSHAWN KAPLAN MD (PCP) Patient Instructions: Upper Respiratory Infection, Adult Additional Instructions: You have been tested for or diagnosed with COVID-19. It is an infection caused by a new type of coronavirus. COVID-19 will cause cold-like or mild flu symptoms in most. It can cause more severe symptoms like problems breathing in some. There is no treatment for COVID-19. The body will clear the infection over time. Self-care will help to ease discomfort. Steps to Take: Self-Care Rest as needed. Healthy habits may help you feel better. Steps include: Choose healthy foods including fruits and vegetables. Drink water throughout the day. Get plenty of sleep each night. If you smoke, try to quit. It may ease breathing. Avoid alcohol. Keep Others Healthy The virus can spread to others. Droplets are released every time you sneeze or cough. The droplets can get into the mouth, nose, or eyes of people near you and lead to infection. To lower the chances of spreading COVID-19 to others: Stay at home until your doctor has said it is safe to leave. If you tested positive this will mean staying isolated until both of the following are true: At least 7 days have passed since the start of illness. You are free of fever for at least 72 hours without the use of medicine. During this time: - Avoid public areas, events, or transportation. Do not return to work or school until your doctor has said it is safe to do so. - Call ahead if you need to go to a medical center. Let them know you may have COVID-19. It will help them guide you where to go. They may also ask you to wear a facemask when you come to the office. - If you call for emergency medical services, let them know you may have COVID- 19. While at home: - Try to avoid close contact with others. Stay about 6 feet away. - If possible, spend most of your time in a separate room from others. - Use a face mask if you will be in close contact with others such as sharing a room or vehicle. - Have someone wipe down common surfaces in the home. Use household quoter every day on areas like doorknobs, counters, or sinks. - Cough or sneeze into a tissue. Throw the tissue away right after use. If a tissue is not available, cough or sneeze into your elbow. - Wash your hands often. Wash them after sneezing or coughing. Use soap and water and wash for at least 20 seconds. Alcohol based hand rack cleaner can be used if soap and water is not available. - Do not prepare food for others. Avoid sharing personal items like forks, spoons, or toothbrushes. - Avoid close contact with pets while you are sick. There is no evidence of the virus passing to pets. This is a safety step until more is known about this virus. Isolation can be frustrating. Social interaction can help. Keep in touch with friends and family through phone and tech options. You can still interact with others in your home, just keep a safe distance of about 6 feet. Follow-up: Your doctors office will check in with you to see if there are any changes in your health. You may be asked to keep track of symptoms to share with them. They will also let you know when you are clear to be in public again. Problems to Look Out For: Contact your doctor if your recovery is not going as you expect. Get emergency care if you have problems such as: - Trouble breathing - Nonstop chest pain or pressure - Changes in awareness, confusion, or problems waking - Lips or face have bluish color - Worsening of symptoms If you think you have an emergency, call for emergency medical services right away. As taken from [facility] Azithromycin (ZITHROMAX) 250 Mg Tablet 1 PKG PO UD, #6 TAB Prov: CIERA RODRIGUEZ I DO 06/24/20 Justicifation of Admission Dx: Justifications for Admission: Justification of Admission Dx: N/A CIERA RODRIGUEZ I DO Jun 24, 2020 18:54
--- NOTE | 2020-06-24 19:27 | RAD ---
AP portable chest 06/24/2020. Reason for exam: Cough. Comparison is made with a study of 01/23/2020. No infiltrate or effusion is seen. Heart size and pulmonary vascularity appear normal. IMPRESSION: No acute disease. Electronically signed by: Shawn Barrientos Jr., MD (06/24/2020 7:24 PM) [facility]ENTERDoug
[2020-06-24] MEDS ORDERED: AZIT250T PO (19:50)
[2020-06-24 19:54] VITALS: BP 122/53
== END 2020-06-24 20:08 | disposition home or self-care (01) ==
LOC: ER 17:59
DX: J40 Bronchitis, not specified as acute or chronic (principal); Z20.828 Contact with and (suspected) exposure to other viral communicable diseases; E11.9 Type 2 diabetes mellitus without complications; E78.00 Pure hypercholesterolemia, unspecified; I10 Essential (primary) hypertension
CPT/HCPCS: 71045; 99284; U0003

== ENCOUNTER → 2021-01-11 | Outpatient (CLI) | payer MEDICARE ==
[~2021-01-11] MED LIST changes: +AZIT250T PO
--- NOTE | 2021-01-11 10:13 | KCIC ---
Right ankle 3 views INDICATION: Acute pain in right ankle lateral. History of injury 5 years ago COMPARISON: Right ankle x-rays of 06/22/2019 and 03/11/2019 FINDINGS: There is normal alignment with mild generalized demineralization. A horizontal fracture through the distal lateral malleolar tip is present, resembling the fracture li ne from the more recent comparison radiograph. No displacement. Acute on chronic fracture is possible . There is mild soft tissue swelling over the lateral malleolus. Soft tissues also show extensive art erial calcification. The ankle mortise is symmetric and intact. No osteochondral lesions noted. No ad ditional fractures are identified. No bony erosions seen. IMPRESSION: Age-indeterminate Dahl type A fracture of the lateral malleolus in the right ankle. Mild associated soft tissue swelling. Electronically signed by: Maggie Cifuentes MD (01/11/2021 10:11 AM) [id number]
== END ==
LOC: KCIC 09:01
PROVIDERS: ATTEND Family Medicine
DX: S82.61XA Displaced fracture of lateral malleolus of right fibula, initial encounter for closed fracture (principal); X58.XXXA Exposure to other specified factors, initial encounter; Y93.89 Activity, other specified; Y92.89 Other specified places as the place of occurrence of the external cause; Y99.8 Other external cause status
CPT/HCPCS: 73610

== ENCOUNTER → 2021-02-25 | Outpatient (CLI) | payer MEDICARE ==
--- NOTE | 2021-02-25 11:04 | KCIC ---
XR SHOULDER_LEFT 2+ VIEWS History: Left shoulder pain, limited range of motion status post fall. Comparison: None. Technique: 3 views of the left shoulder. Findings: There is no evidence for fracture. Alignment is normal. No destructive osseous lesions are seen. Mild degenerative changes of the comminuted clavicular and glenohumeral joints. Soft tissues are normal. Impression: 1. Mild degenerative changes without acute osseous abnormality of the left shoulder. Electronically signed by: Guille Sanz MD (02/25/2021 11:02 AM) [facility]
== END ==
LOC: KCIC 10:46
PROVIDERS: ATTEND Family Medicine
DX: M19.012 Primary osteoarthritis, left shoulder (principal)
CPT/HCPCS: 73030